=== PATIENT | female | born 1950 | race Caucasian/White ===

== ENCOUNTER → 2018-01-07 14:54 | Outpatient (CLI) | payer MEDICARE, OTHER, SELFPAY ==
--- NOTE | 2018-01-07 | DI.MG.S_ITS ---
BILATERAL DIGITAL SCREENING MAMMOGRAM 3D/2D WITH CAD: 01/07/2018 CLINICAL: Routine screening. Comparison is made to exams dated: 11/13/2016 mammogram, 11/05/2015 mammogram, and 05/28/2015 mammogram - [facility]. The tissue of both breasts is predominantly fatty. Current study was also evaluated with a Computer Aided Detection (CAD) system. There is a biopsy clip in the left breast. No significant masses, calcifications, or other findings are seen in either breast. There has been no significant interval change. IMPRESSION: NEGATIVE There is no mammographic evidence of malignancy. A 1 year screening mammogram is recommended. This exam was interpreted at Station ID: [id number]. NOTE: For mammograms, a report in lay terms will be sent to the patient. Approximately 15% of breast malignancies will not be visualized mammographically. In the management of a palpable breast mass, a negative mammogram must not discourage biopsy of a clinically suspicious lesion. Electronically Signed By: Chris perez/aakash:01/07/2018 16:27:23 letter sent: Normal Exam ACR BI-RADS Category 1: Negative 3341F
== END ==
PROVIDERS: Family Provider Family Medicine; PCP Family Medicine; Visit Provider Family Medicine
DX: Z12.31 Encounter for screening mammogram for malignant neoplasm of breast (principal)
CPT/HCPCS: 77063; 77067

== ENCOUNTER 2018-11-18 11:08 | Inpatient (IN) | payer MEDICARE, OTHER, SELFPAY ==
[2018-11-18] VITALS (18 sets, daily range): BP systolic 111–160; BP diastolic 46–80; PULSE 77–98; RESP 13–18; TEMP 35.9–36.6; O2SAT 93–99; BMI 37.1; BMI 37.3
--- NOTE | 2018-11-18 | PATH_ITS ---
[facility] Accession Number: [id number] . 01 Material submitted: . gastrointestinal site - GASTRIC MUCOSA BIOPSIES . 01 Clinical history: . EVALUATE FOR H. PYLORI . 02 Diagnosis: Stomach, Biopsies: Acute erosive gastritis. Negative for Helicobacter by immunohistochemistry. Negative for intestinal metaplasia by alcian blue stain. Negative for dysplasia and malignancy. [facility]/11/21/2018 . 02 Electronically signed: . Saray Phillips MD, Pathologist NPI- [id number] . 01 Gross description: . GASTRIC MUCOSA BIOPSIES: Received in formalin are multiple fragment(s) of hightower, soft tissue measuring 0.1 x 0.1 x 0.1 cm to 0.3 x 0.2 x 0.2 cm which is entirely submitted and submitted entirely in 1 cassette(s) /DMC /DMC . 02 Microscopic: . An alcian blue stain was performed to evaluate for intestinal metaplasia, and is negative. The control stain showed appropriate reactivity. . An immunohistochemical stain was performed to evaluate for Helicobacter organisms and is negative. The control stain showed appropriate reactivity. . * This test was developed and its performance characteristics determined by [facility]. It has not been cleared or approved by the U.S. Food and Drug Administration. The FDA has determined that such clearance or approval is not necessary. This test is used for clinical purposes. It should not be regarded as investigational or for research. . 02 Pathologist provided ICD-10: K25.9 . 02 CPT . 314023, 086264, G72007 Performed at: [address], [place], [place] [id number] MD Bi Langford MD Phone: [phone] Performed at: 02 [facility] [address] [place] [id number] MD Saray Phillips MD Phone: [phone]
--- NOTE | 2018-11-18 11:18 | PC.NURSE ---
pt c/o dark tary stool x2 today, reports dizziness, and sob when she stands. states feels fine laying on stretcher.
[2018-11-18 11:58] LABS: INR 1.1 (0.9-1.3); Prothrombin Time 12.6 SECONDS (10.1-12.7)
[2018-11-18 12:00] LABS: Add Manual Diff / Slide Review NO; Basophils Absolute Auto 200 /uL (0-100); Basophils Percent Auto 1.2 % (0-2); Eosinophils Absolute Auto 100 /uL (0-450); Eosinophils Percent Auto 0.4 % (2-4); Hematocrit 37.7 % (36-46); Hemoglobin 12.7 g/dL (12.0-16.0); Lymphocytes Absolute Auto 1600 /uL (1100-4500); Mean Corpuscular HGB Conc 33.7 % (30-36); Mean Corpuscular Volume 86.1 fL (80-100); Monocytes Absolute Auto 1000 /uL (0-900); Monocytes Percent Auto 7.2 % (3-14); Neutrophils Absolute Auto 11500 /uL (1500-7000); Neutrophils Percent Auto 80.2 % (50-75); Platelet Count 311 X10^3/uL (150-400); Red Blood Cell Count 4.38 X10^6/uL (4.0-5.2); Red Cell Distribution Width 14.4 % (11.6-14.8); White Blood Cell Count 14.3 X10^3/uL (4.5-11.0)
[2018-11-18 12:01] LABS: PTT Partial Thromboplastin Tim 29 SECONDS (26.4-36.2)
[2018-11-18 12:05] LABS: Alanine Aminotransferase 17 IU/L (9-52); Albumin Globulin Ratio 1.3 (1.0-2.8); Alkaline Phosphatase 39 U/L (38-126); Aspartate Aminotransferase 18 IU/L (14-36); BUN Creatinine Ratio 83.3 (6-22); Bilirubin Total 0.5 mg/dL (0.2-1.3); Blood Urea Nitrogen 50 mg/dL (7-17); Calcium 9.5 mg/dL (8.4-10.2); Carbon Dioxide 25 mmol/L (22-32); Chloride 109 mmol/L (98-107); Estimated Glomerular Filt Rate > 60.0 mL/min (>60); Glucose 165 mg/dL (80-110); HEMOLYSIS < 15 (0-50); Potassium 4.8 mmol/L (3.4-5.1); Sodium 140 mmol/L (137-145)
--- NOTE | 2018-11-18 12:43 | ED.GIBLEED ---
HPI - GI Bleed <Taryn Berrios PA-C - Last Filed: 11/18/18 20:48> General Chief complaint: GI Bleed Stated complaint: Weakness, Black stool Time Seen by Provider: 11/18/18 12:43 Source: patient Mode of arrival: EMS Limitations: no limitations History of Present Illness HPI Narrative: This 68-year-old female comes via EMS due to to black stools this morning. She states bowel movements were normally formed and usually has 2 per morning. She states that she had did not have any vomiting today. She denies any abdominal or flank pain. She states she has been eating and drinking normally, felt slightly queasy last night so took some Tums. She states that this is a sensation of weakness when she stands up and tries to walk around, and that has persisted today. She has not eaten today. She has not had any diarrhea. She has not had any urinary symptoms or hematuria. She denies any chest pain or dyspnea. She states that she has a remote history of ulcer but no history of bleeding. She takes baby aspirin daily for prevention as well as 1 or 2 aspirin twice daily for knee pain, no increased recently. She states that she had some sweats last night, no known fever. She states that today she feels fine other than feeling a little bit ?queasy? when she is up and about. Past medical history: 1. Obesity 2. Hypertension 3. Hypercalcemia secondary to parathyroid adenoma 4. Perforated diverticulitis 2002 5. Nonbleeding ulcer She denies asthma, diabetes, coronary disease, arrhythmia, myocardial infarction, or stroke Past surgical history: 1. Colonoscopy 2012 which was normal by operative report 2. Bilateral tubal ligation 3. Partial colectomy 2002 with left oophorectomy 4. Repair of incisional hernia 5. Excision of parathyroid adenoma in the distant past 6. Removal of food impaction/esophageal stricture Related Data Home Medications Medication Instructions Recorded Confirmed aspirin 81 mg PO DAILY #0 05/16/12 11/18/18 metoprolol tartrate 25 mg PO BID #0 05/16/12 11/18/18 multivitamin 1 tab PO DAILY #0 05/16/12 11/18/18 Allergies Allergy/AdvReac Type Severity Reaction Status Date / Time diazepam Allergy Unknown anxiousness Verified 11/18/18 11:13 Penicillins Allergy Unknown rash, Verified 11/18/18 11:13 swelling everywhere Review of Systems <ELVA Love Last Filed: 11/18/18 20:48> Review of Systems ROS Unobtainable: All systems reviewed & are unremarkable except as noted in HPI and below PFSH <ELVA Love Last Filed: 11/18/18 20:48> Medical History (Updated 11/18/18 @ 19:11 by Damien Jiménez MD) Esophageal stricture (Acute) Gastric ulcer (Acute) Obesity (Acute) Social History household members: family Smoking Status: Never smoker alcohol intake: current Social History household members: family Smoking Status: Never smoker alcohol intake: current Exam <ELVA Love Last Filed: 11/18/18 20:48> Narrative Exam Narrative: GENERAL APPEARANCE: Patient sitting comfortably, in no distress. Postural vital signs following 1 L of saline: Supine 125/66, pulse 85, sitting 145/67, pulse 84, standing 156/80, pulse 88. Unable to do standing prior to fluids HEENT: PERRL, EOMI, conjunctiva pink NECK: Supple LUNGS: Clear to auscultation bilaterally. HEART: Rate and rhythm regular, normal S1 and S2, no S3 or S4. ABDOMEN: Soft, nontender, nondistended, bowel sounds present x 4 quadrants, no masses palpable, no hepatosplenomegaly. No CVAT EXTREMITIES: No edema, no cyanosis DERMATOLOGIC: No jaundice or exanthem NEUROLOGIC: Alert and oriented with normal speech and coordination RECTAL: black stool in vault, FOB +, no palpable internal masses Initial Vital Signs Initial Vital Signs: Vital Signs Pulse Rate 94 H 11/18/18 11:13 Respiratory Rate 15 11/18/18 11:13 Blood Pressure 142/74 H 11/18/18 11:13 Pulse Oximetry 96 11/18/18 11:13 <Carmelina Allan DO - Last Filed: 11/19/18 10:13> Initial Vital Signs Initial Vital Signs: Vital Signs Pulse Rate 94 H 11/18/18 11:13 Respiratory Rate 15 11/18/18 11:13 Blood Pressure 142/74 H 11/18/18 11:13 Pulse Oximetry 96 11/18/18 11:13 Course <Taryn Berrios PA-C - Last Filed: 11/18/18 20:48> Additional Information: Patient was not able to remain standing for postural vital signs secondary to feeling weak and dizzy. Fluids were initiated after repeat H&H drawn. She has been given Protonix and Zofran. Stool is black heme-positive. She is comfortable at rest. She is not having any abdominal pain. I spoke with Dr. Mehta, patient's PCP, who agrees that admission is warranted. Requested surgical consult. Likely upper GI bleed secondary to long-term ASA use. I have spoken with Dr. Chu poison information specialist for surgery who agrees with plan, requested 2nd IV start and will see patient end of the day. Orders Ordered: ED Orders 11/19/18 05:48 CBC [Complete Blood Count AUTO DIFF] Routine Comprehensive Metabolic Panel Routine 11/20/18 05:00 Basic Metabolic Panel Routine CBC [Complete Blood Count AUTO DIFF] Routine Metoprolol Succinate (Toprol Xl) 25 mg PO BID [facility] Last Admin: 11/19/18 09:27 Dose: 25 mg Admin: 11/18/18 22:14 Dose: Not Given Pantoprazole Sodium (Protonix) 40 mg IV BID [facility] Last Admin: 11/19/18 09:27 Dose: 40 mg Admin: 11/18/18 21:32 Dose: 40 mg Discontinued Medications Epinephrine HCl (Adrenalin) 1 mg SUBCUT NOW ONE Stop: 11/18/18 19:57 Last Admin: 11/18/18 19:59 Dose: 0.3 mg Sodium Chloride (Normal Saline 0.9%) 1,000 mls @ 1,000 mls/hr IV BOLUS ONE Stop: 11/18/18 14:16 Last Infusion: 11/18/18 14:53 Dose: 0 mls/hr Admin: 11/18/18 13:41 Dose: 1,000 mls/hr Lactated Ringer's (Lactated Ringers) 1,000 mls @ 100 mls/hr IV NOW ONE Stop: 11/19/18 05:51 Last Infusion: 11/18/18 20:22 Dose: 0 mls/hr Admin: 11/18/18 19:52 Dose: 100 mls/hr Ondansetron HCl (Zofran) 4 mg IV NOW ONE Stop: 11/18/18 13:18 Last Admin: 11/18/18 13:41 Dose: 4 mg Pantoprazole Sodium (Protonix) 80 mg IV NOW ONE Stop: 11/18/18 13:05 Last Admin: 11/18/18 13:41 Dose: 80 mg Vital Signs - 8 hr 11/19/18 03:58 11/19/18 07:50 11/19/18 09:27 Temperature 98.0 F 97.7 F Pulse Rate 87 93 H 98 H Respiratory Rate 16 18 Blood Pressure 137/52 L 140/63 140/63 Pulse Oximetry 96 97 <Carmelina Allan, - Last Filed: 11/19/18 10:13> Orders Ordered: ED Orders 11/19/18 05:48 CBC [Complete Blood Count AUTO DIFF] Routine Comprehensive Metabolic Panel Routine 11/20/18 05:00 Basic Metabolic Panel Routine CBC [Complete Blood Count AUTO DIFF] Routine Metoprolol Succinate (Toprol Xl) 25 mg PO BID [facility] Last Admin: 11/19/18 09:27 Dose: 25 mg Admin: 11/18/18 22:14 Dose: Not Given Pantoprazole Sodium (Protonix) 40 mg IV BID [facility] Last Admin: 11/19/18 09:27 Dose: 40 mg Admin: 11/18/18 21:32 Dose: 40 mg Discontinued Medications Epinephrine HCl (Adrenalin) 1 mg SUBCUT NOW ONE Stop: 11/18/18 19:57 Last Admin: 11/18/18 19:59 Dose: 0.3 mg Sodium Chloride (Normal Saline 0.9%) 1,000 mls @ 1,000 mls/hr IV BOLUS ONE Stop: 11/18/18 14:16 Last Infusion: 11/18/18 14:53 Dose: 0 mls/hr Admin: 11/18/18 13:41 Dose: 1,000 mls/hr Lactated Ringer's (Lactated Ringers) 1,000 mls @ 100 mls/hr IV NOW ONE Stop: 11/19/18 05:51 Last Infusion: 11/18/18 20:22 Dose: 0 mls/hr Admin: 11/18/18 19:52 Dose: 100 mls/hr Ondansetron HCl (Zofran) 4 mg IV NOW ONE Stop: 11/18/18 13:18 Last Admin: 11/18/18 13:41 Dose: 4 mg Pantoprazole Sodium (Protonix) 80 mg IV NOW ONE Stop: 06/10/19 13:05 Last Admin: 11/18/18 13:41 Dose: 80 mg Vital Signs - 8 hr 11/19/18 03:58 11/19/18 07:50 11/19/18 09:27 Temperature 98.0 F 97.7 F Pulse Rate 87 93 H 98 H Respiratory Rate 16 18 Blood Pressure 137/52 L 140/63 140/63 Pulse Oximetry 96 97 MDM - GI Bleed <Taryn Berrios PA-C - Last Filed: 11/18/18 20:48> Lab Data Result diagrams: 11/19/18 05:48 11/19/18 05:48 Lab Results 11/18/18 11/18/18 11/18/18 Range/Units 11:37 11:37 11:37 WBC 14.3 H (4.5-11.0) X10^3/uL RBC 4.38 (4.0-5.2) X10^6/uL Hgb 12.7 (12.0-16.0) g/dL Hct 37.7 (36-46) % MCV 86.1 (80-100) fL MCH 29.0 (26-34) PG MCHC 33.7 (30-36) % RDW 14.4 (11.6-14.8) % Plt Count 311 (150-400) X10^3/uL Neut % (Auto) 80.2 H (50-75) % Lymph % (Auto) 11.0 L (25-40) % [place] % (Auto) 7.2 (3-14) % Eos % (Auto) 0.4 L (2-4) % Baso % (Auto) 1.2 (0-2) % Neut # (Auto) 59835 H (1096-7052) /uL Lymph # (Auto) 1600 (0784-7872) /uL [place] # (Auto) 1000 H (0-900) /uL Eos # (Auto) 100 (0-450) /uL Baso # (Auto) 200 H (0-100) /uL PT 12.6 (10.1-12.7) SECONDS INR 1.1 (0.9-1.3) APTT 29 (26.4-36.2) SECONDS Sodium 140 (137-145) mmol/L Potassium 4.8 (3.4-5.1) mmol/L Chloride 109 H (98-107) mmol/L Carbon Dioxide 25 (22-32) mmol/L BUN 50 H (7-17) mg/dL Creatinine 0.60 (0.52-1.04) mg/dL Estimated GFR > 60.0 (>60) mL/min BUN/Creatinine Ratio 83.3 H (6-22) Glucose 165 H (80-110) mg/dL Calcium 9.5 (8.4-10.2) mg/dL Total Bilirubin 0.5 (0.2-1.3) mg/dL AST 18 (14-36) IU/L ALT 17 (9-52) IU/L Alkaline Phosphatase 39 (38-126) U/L Total Protein 7.0 (6.3-8.2) g/dL Albumin 4.0 (3.5-5.0) g/dL Globulin 3.0 (1.7-4.1) g/dL Albumin/Globulin Ratio 1.3 (1.0-2.8) Amylase (30-110) U/L Lipase (23-300) U/L Urine RBC (0-5/HPF) Urine WBC (0-5/HPF) Ur Squamous Epith Cells (0-5/HPF) Ur Renal Epithelial Cell (0-1/HPF) Amorphous Sediment Urine Bacteria (None) Ur Culture Indicated? Blood Type Antibody Screen 11/18/18 11/18/18 11/18/18 Range/Units 13:35 13:35 15:00 WBC (4.5-11.0) X10^3/uL RBC (4.0-5.2) X10^6/uL Hgb 12.4 (12.0-16.0) g/dL Hct 37.0 (36-46) % MCV (80-100) fL MCH (26-34) PG MCHC (30-36) % RDW (11.6-14.8) % Plt Count (150-400) X10^3/uL Neut % (Auto) (50-75) % Lymph % (Auto) (25-40) % [place] % (Auto) (3-14) % Eos % (Auto) (2-4) % Baso % (Auto) (0-2) % Neut # (Auto) (9873-3830) /uL Lymph # (Auto) (7567-0310) /uL [place] # (Auto) (0-900) /uL Eos # (Auto) (0-450) /uL Baso # (Auto) (0-100) /uL PT (10.1-12.7) SECONDS INR (0.9-1.3) APTT (26.4-36.2) SECONDS Sodium (137-145) mmol/L Potassium (3.4-5.1) mmol/L Chloride (98-107) mmol/L Carbon Dioxide (22-32) mmol/L BUN (7-17) mg/dL Creatinine (0.52-1.04) mg/dL Estimated GFR (>60) mL/min BUN/Creatinine Ratio (6-22) Glucose (80-110) mg/dL Calcium (8.4-10.2) mg/dL Total Bilirubin (0.2-1.3) mg/dL AST (14-36) IU/L ALT (9-52) IU/L Alkaline Phosphatase (38-126) U/L Total Protein (6.3-8.2) g/dL Albumin (3.5-5.0) g/dL Globulin (1.7-4.1) g/dL Albumin/Globulin Ratio (1.0-2.8) Amylase 69 (30-110) U/L Lipase 66 (23-300) U/L Urine RBC None seen (0-5/HPF) Urine WBC 5-10/hpf H (0-5/HPF) Ur Squamous Epith Cells 1-5 /hpf (0-5/HPF) Ur Renal Epithelial Cell 0-1/hpf (0-1/HPF) Amorphous Sediment 1+ Urine Bacteria Few (2-10) H (None) Ur Culture Indicated? Specimen cultured Blood Type Antibody Screen 11/18/18 11/19/18 11/19/18 Range/Units 15:20 05:48 05:48 WBC 10.0 (4.5-11.0) X10^3/uL RBC 3.33 L (4.0-5.2) X10^6/uL Hgb 9.9 L (12.0-16.0) g/dL Hct 28.7 L (36-46) % MCV 86.3 (80-100) fL MCH 29.9 (26-34) PG MCHC 34.6 (30-36) % RDW 14.4 (11.6-14.8) % Plt Count 219 (150-400) X10^3/uL Neut % (Auto) 60.4 (50-75) % Lymph % (Auto) 26.0 (25-40) % [place] % (Auto) 9.8 (3-14) % Eos % (Auto) 2.8 (2-4) % Baso % (Auto) 1.0 (0-2) % Neut # (Auto) 6000 (7986-0233) /uL Lymph # (Auto) 2600 (2909-5019) /uL [place] # (Auto) 1000 H (0-900) /uL Eos # (Auto) 300 (0-450) /uL Baso # (Auto) 100 (0-100) /uL PT (10.1-12.7) SECONDS INR (0.9-1.3) APTT (26.4-36.2) SECONDS Sodium 139 (137-145) mmol/L Potassium 4.2 (3.4-5.1) mmol/L Chloride 111 H (98-107) mmol/L Carbon Dioxide 23 (22-32) mmol/L BUN 38 H (7-17) mg/dL Creatinine 0.60 (0.52-1.04) mg/dL Estimated GFR > 60.0 (>60) mL/min BUN/Creatinine Ratio 63.3 H (6-22) Glucose 137 H (80-110) mg/dL Calcium 8.6 (8.4-10.2) mg/dL Total Bilirubin 0.3 (0.2-1.3) mg/dL AST 19 (14-36) IU/L ALT 18 (9-52) IU/L Alkaline Phosphatase 33 L (38-126) U/L Total Protein 5.9 L (6.3-8.2) g/dL Albumin 3.1 L (3.5-5.0) g/dL Globulin 2.8 (1.7-4.1) g/dL Albumin/Globulin Ratio 1.1 (1.0-2.8) Amylase (30-110) U/L Lipase (23-300) U/L Urine RBC (0-5/HPF) Urine WBC (0-5/HPF) Ur Squamous Epith Cells (0-5/HPF) Ur Renal Epithelial Cell (0-1/HPF) Amorphous Sediment Urine Bacteria (None) Ur Culture Indicated? Blood Type O Positive Antibody Screen Negative Urine Dip Bedside Urine Glucose Negative Bedside Urine Bilirubin + 1 Bedside Urine Ketone - Negative Urine Specific [place] 1.020 Bedside Urine Occult Blood - Negative Bedside Urine pH 6.0 Bedside Urine Protein - Negative Bedside Urine Urobilinogen - Negative Bedside Urine Nitrite - Negative Bedside Urine Leukocytes ++ 125 Esterase <Carmelina Allan, DO - Last Filed: 11/19/18 10:13> Lab Data Lab Results 11/18/18 11/18/18 11/18/18 Range/Units 11:37 11:37 11:37 WBC 14.3 H (4.5-11.0) X10^3/uL RBC 4.38 (4.0-5.2) X10^6/uL Hgb 12.7 (12.0-16.0) g/dL Hct 37.7 (36-46) % MCV 86.1 (80-100) fL MCH 29.0 (26-34) PG MCHC 33.7 (30-36) % RDW 14.4 (11.6-14.8) % Plt Count 311 (150-400) X10^3/uL Neut % (Auto) 80.2 H (50-75) % Lymph % (Auto) 11.0 L (25-40) % [place] % (Auto) 7.2 (3-14) % Eos % (Auto) 0.4 L (2-4) % Baso % (Auto) 1.2 (0-2) % Neut # (Auto) 53245 H (3290-6903) /uL Lymph # (Auto) 1600 (4016-9288) /uL [place] # (Auto) 1000 H (0-900) /uL Eos # (Auto) 100 (0-450) /uL Baso # (Auto) 200 H (0-100) /uL PT 12.6 (10.1-12.7) SECONDS INR 1.1 (0.9-1.3) APTT 29 (26.4-36.2) SECONDS Sodium 140 (137-145) mmol/L Potassium 4.8 (3.4-5.1) mmol/L Chloride 109 H (98-107) mmol/L Carbon Dioxide 25 (22-32) mmol/L BUN 50 H (7-17) mg/dL Creatinine 0.60 (0.52-1.04) mg/dL Estimated GFR > 60.0 (>60) mL/min BUN/Creatinine Ratio 83.3 H (6-22) Glucose 165 H (80-110) mg/dL Calcium 9.5 (8.4-10.2) mg/dL Total Bilirubin 0.5 (0.2-1.3) mg/dL AST 18 (14-36) IU/L ALT 17 (9-52) IU/L Alkaline Phosphatase 39 (38-126) U/L Total Protein 7.0 (6.3-8.2) g/dL Albumin 4.0 (3.5-5.0) g/dL Globulin 3.0 (1.7-4.1) g/dL Albumin/Globulin Ratio 1.3 (1.0-2.8) Amylase (30-110) U/L Lipase (23-300) U/L Urine RBC (0-5/HPF) Urine WBC (0-5/HPF) Ur Squamous Epith Cells (0-5/HPF) Ur Renal Epithelial Cell (0-1/HPF) Amorphous Sediment Urine Bacteria (None) Ur Culture Indicated? Blood Type Antibody Screen 11/18/18 11/18/18 11/18/18 Range/Units 13:35 13:35 15:00 WBC (4.5-11.0) X10^3/uL RBC (4.0-5.2) X10^6/uL Hgb 12.4 (12.0-16.0) g/dL Hct 37.0 (36-46) % MCV (80-100) fL MCH (26-34) PG MCHC (30-36) % RDW (11.6-14.8) % Plt Count (150-400) X10^3/uL Neut % (Auto) (50-75) % Lymph % (Auto) (25-40) % [place] % (Auto) (3-14) % Eos % (Auto) (2-4) % Baso % (Auto) (0-2) % Neut # (Auto) (3913-9632) /uL Lymph # (Auto) (7873-3101) /uL [place] # (Auto) (0-900) /uL Eos # (Auto) (0-450) /uL Baso # (Auto) (0-100) /uL PT (10.1-12.7) SECONDS INR (0.9-1.3) APTT (26.4-36.2) SECONDS Sodium (137-145) mmol/L Potassium (3.4-5.1) mmol/L Chloride (98-107) mmol/L Carbon Dioxide (22-32) mmol/L BUN (7-17) mg/dL Creatinine (0.52-1.04) mg/dL Estimated GFR (>60) mL/min BUN/Creatinine Ratio (6-22) Glucose (80-110) mg/dL Calcium (8.4-10.2) mg/dL Total Bilirubin (0.2-1.3) mg/dL AST (14-36) IU/L ALT (9-52) IU/L Alkaline Phosphatase (38-126) U/L Total Protein (6.3-8.2) g/dL Albumin (3.5-5.0) g/dL Globulin (1.7-4.1) g/dL Albumin/Globulin Ratio (1.0-2.8) Amylase 69 (30-110) U/L Lipase 66 (23-300) U/L Urine RBC None seen (0-5/HPF) Urine WBC 5-10/hpf H (0-5/HPF) Ur Squamous Epith Cells 1-5 /hpf (0-5/HPF) Ur Renal Epithelial Cell 0-1/hpf (0-1/HPF) Amorphous Sediment 1+ Urine Bacteria Few (2-10) H (None) Ur Culture Indicated? Specimen cultured Blood Type Antibody Screen 11/18/18 11/19/18 11/19/18 Range/Units 15:20 05:48 05:48 WBC 10.0 (4.5-11.0) X10^3/uL RBC 3.33 L (4.0-5.2) X10^6/uL Hgb 9.9 L (12.0-16.0) g/dL Hct 28.7 L (36-46) % MCV 86.3 (80-100) fL MCH 29.9 (26-34) PG MCHC 34.6 (30-36) % RDW 14.4 (11.6-14.8) % Plt Count 219 (150-400) X10^3/uL Neut % (Auto) 60.4 (50-75) % Lymph % (Auto) 26.0 (25-40) % [place] % (Auto) 9.8 (3-14) % Eos % (Auto) 2.8 (2-4) % Baso % (Auto) 1.0 (0-2) % Neut # (Auto) 6000 (4079-8305) /uL Lymph # (Auto) 2600 (0880-7923) /uL [place] # (Auto) 1000 H (0-900) /uL Eos # (Auto) 300 (0-450) /uL Baso # (Auto) 100 (0-100) /uL PT (10.1-12.7) SECONDS INR (0.9-1.3) APTT (26.4-36.2) SECONDS Sodium 139 (137-145) mmol/L Potassium 4.2 (3.4-5.1) mmol/L Chloride 111 H (98-107) mmol/L Carbon Dioxide 23 (22-32) mmol/L BUN 38 H (7-17) mg/dL Creatinine 0.60 (0.52-1.04) mg/dL Estimated GFR > 60.0 (>60) mL/min BUN/Creatinine Ratio 63.3 H (6-22) Glucose 137 H (80-110) mg/dL Calcium 8.6 (8.4-10.2) mg/dL Total Bilirubin 0.3 (0.2-1.3) mg/dL AST 19 (14-36) IU/L ALT 18 (9-52) IU/L Alkaline Phosphatase 33 L (38-126) U/L Total Protein 5.9 L (6.3-8.2) g/dL Albumin 3.1 L (3.5-5.0) g/dL Globulin 2.8 (1.7-4.1) g/dL Albumin/Globulin Ratio 1.1 (1.0-2.8) Amylase (30-110) U/L Lipase (23-300) U/L Urine RBC (0-5/HPF) Urine WBC (0-5/HPF) Ur Squamous Epith Cells (0-5/HPF) Ur Renal Epithelial Cell (0-1/HPF) Amorphous Sediment Urine Bacteria (None) Ur Culture Indicated? Blood Type O Positive Antibody Screen Negative Urine Dip Bedside Urine Glucose Negative Bedside Urine Bilirubin + 1 Bedside Urine Ketone - Negative Urine Specific [place] 1.020 Bedside Urine Occult Blood - Negative Bedside Urine pH 6.0 Bedside Urine Protein - Negative Bedside Urine Urobilinogen - Negative Bedside Urine Nitrite - Negative Bedside Urine Leukocytes ++ 125 Esterase Discharge Plan Departure Patient Disposition: Admitted As Inpatient Clinical Impression: GI (gastrointestinal bleed) Discharge Date/Time: 11/18/18 15:32 Interventions: ED Discharge Assessment Last Done: 11/18/18 15:28 Admit Date/Time: 11/18/18 15:07 Admit Provider: Kendra Mehta <Carmelina Allan DO - Last Filed: 11/19/18 10:13> Cosign ED Attending Cosignature Attestation: I was immediately available in the department for consultation, case discussed and plan for admission with surgical consult. This documentation has been reviewed and I agree with assessment and plan. Supervised by Carmelina Allan DO
--- NOTE | 2018-11-18 12:46 | ED_ITS ---
HPI - GI Bleed <Taryn Berrios PA-C - Last Filed: 11/18/18 20:48> General Chief complaint: GI Bleed Stated complaint: Weakness, Black stool Time Seen by Provider: 11/18/18 12:43 Source: patient Mode of arrival: EMS Limitations: no limitations History of Present Illness HPI Narrative: This 68-year-old female comes via EMS due to to black stools this morning. She states bowel movements were normally formed and usually has 2 per morning. She states that she had did not have any vomiting today. She denies any abdominal or flank pain. She states she has been eating and drinking normal ly, felt slightly queasy last night so took some Tums. She states that this is a sensation of weakness when she stands up and tries to walk around, and that has persisted today. She has not eaten today. She has not had any diarrhea. She has not had any urinary symptoms or hematuria. She denies any chest pain or dyspnea. She states that she has a remote history of ulcer but no history of bleeding. She takes baby aspirin daily for prevention as well as 1 or 2 aspirin twice daily for knee pain, no increased recently. She states that she had some sweats last night, no known fever. She states that today she feels fine other than feeling a little bit ?queasy? when she is up and about. Past medical history: 1. Obesity 2. Hypertension 3. Hypercalcemia secondary to parathyroid adenoma 4. Perforated diverticulitis 2002 5. Nonbleeding ulcer She denies asthma, diabetes, coronary disease, arrhythmia, myocardial infarction, or stroke Past surgical history: 1. Colonoscopy 2012 which was normal by operative report 2. Bilateral tubal ligation 3. Partial colectomy 2002 with left oophorectomy 4. Repair of incisional hernia 5. Excision of parathyroid adenoma in the distant past 6. Removal of food impaction/esophageal stricture Related Data Home Medications Medication Instructions Recorded Confirmed aspirin 81 mg PO DAILY #0 05/16/12 11/18/18 metoprolol tartrate 25 mg PO BID #0 05/16/12 11/18/18 multivitamin 1 tab PO DAILY #0 05/16/12 11/18/18 Allergies Allergy/AdvReac Type Severity Reaction Status Date / Time diazepam Allergy Unknown anxiousness Verified 11/18/18 11:13 Penicillins Allergy Unknown rash, Verified 11/18/18 11:13 swelling everywhere Review of Systems <Taryn Berrios PA-C - Last Filed: 11/18/18 20:48> Review of Systems ROS Unobtainable: All systems reviewed & are unremarkable except as noted in HPI and below PFSH <Taryn Berrios PA-C - Last Filed: 11/18/18 20:48> Medical History (Updated 11/18/18 @ 19:11 by Damien Jiménez MD) Esophageal stricture (Acute) Gastric ulcer (Acute) Obesity (Acute) Social History household members: family Smoking Status: Never smoker alcohol intake: current Social History household members: family Smoking Status: Never smoker alcohol intake: current Exam <ELVA Love Last Filed: 11/18/18 20:48> Narrative Exam Narrative: GENERAL APPEARANCE: Patient sitting comfortably, in no distress. Postural vital signs following 1 L of saline: Supine 125/66, pulse 85, sitting 145/67, pulse 84, standing 156/80, pulse 88. Unable to do standing prior to fluids HEENT: PERRL, EOMI, conjunctiva pink NECK: Supple LUNGS: Clear to auscultation bilaterally. HEART: Rate and rhythm regular, normal S1 and S2, no S3 or S4. ABDOMEN: Soft, nontender, nondistended, bowel sounds present x 4 quadrants, no masses palpable, no hepatosplenomegaly. No CVAT EXTREMITIES: No edema, no cyanosis DERMATOLOGIC: No jaundice or exanthem NEUROLOGIC: Alert and oriented with normal speech and coordination RECTAL: black stool in vault, FOB +, no palpable internal masses Initial Vital Signs Initial Vital Signs: Vital Signs Pulse Rate 94 H 11/18/18 11:13 Respiratory Rate 15 11/18/18 11:13 Blood Pressure 142/74 H 11/18/18 11:13 Pulse Oximetry 96 11/18/18 11:13 <Carmelina Allan DO - Last Filed: 11/19/18 10:13> Initial Vital Signs Initial Vital Signs: Vital Signs Pulse Rate 94 H 11/18/18 11:13 Respiratory Rate 15 11/18/18 11:13 Blood Pressure 142/74 H 11/18/18 11:13 Pulse Oximetry 96 11/18/18 11:13 Course <Taryn Berrios PA-C - Last Filed: 11/18/18 20:48> Additional Information: Patient was not able to remain standing for postural vital signs secondary to feeling weak and dizzy. Fluids were initiated after repeat H&H drawn. She has been given Protonix and Zofran. Stool is black heme- positive. She is comfortable at rest. She is not having any abdominal pain. I spoke with Dr. Mehta, patient's PCP, who agrees that admission is warranted. Requested surgical consult. Likely upper GI bleed secondary to long-term ASA use. I have spoken with Dr. Chu qualifications examiner for surgery who agrees with plan, requested 2nd IV start and will see patient end of the day. Orders Ordered: ED Orders 11/19/18 05:48 CBC [Complete Blood Count AUTO DIFF] Routine Comprehensive Metabolic Panel Routine 11/20/18 05:00 Basic Metabolic Panel Routine CBC [Complete Blood Count AUTO DIFF] Routine Metoprolol Succinate (Toprol Xl) 25 mg PO BID [facility] Last Admin: 11/19/18 09:27 Dose: 25 mg Admin: 11/18/18 22:14 Dose: Not Given Pantoprazole Sodium (Protonix) 40 mg IV BID [facility] Last Admin: 11/19/18 09:27 Dose: 40 mg Admin: 11/18/18 21:32 Dose: 40 mg Discontinued Medications Epinephrine HCl (Adrenalin) 1 mg SUBCUT NOW ONE Stop: 11/18/18 19:57 Last Admin: 11/18/18 19:59 Dose: 0.3 mg Sodium Chloride (Normal Saline 0.9%) 1,000 mls @ 1,000 mls/hr IV BOLUS ONE Stop: 11/18/18 14:16 Last Infusion: 11/18/18 14:53 Dose: 0 mls/hr Admin: 11/18/18 13:41 Dose: 1,000 mls/hr Lactated Ringer's (Lactated Ringers) 1,000 mls @ 100 mls/hr IV NOW ONE Stop: 11/19/18 05:51 Last Infusion: 11/18/18 20:22 Dose: 0 mls/hr Admin: 11/18/18 19:52 Dose: 100 mls/hr Ondansetron HCl (Zofran) 4 mg IV NOW ONE Stop: 11/18/18 13:18 Last Admin: 11/18/18 13:41 Dose: 4 mg Pantoprazole Sodium (Protonix) 80 mg IV NOW ONE Stop: 11/18/18 13:05 Last Admin: 11/18/18 13:41 Dose: 80 mg Vital Signs - 8 hr 11/19/18 03:58 11/19/18 07:50 11/19/18 09:27 Temperature 98.0 F 97.7 F Pulse Rate 87 93 H 98 H Respiratory Rate 16 18 Blood Pressure 137/52 L 140/63 140/63 Pulse Oximetry 96 97 <Carmelina Allan, - Last Filed: 11/19/18 10:13> Orders Ordered: ED Orders 11/19/18 05:48 CBC [Complete Blood Count AUTO DIFF] Routine Comprehensive Metabolic Panel Routine 11/20/18 05:00 Basic Metabolic Panel Routine CBC [Complete Blood Count AUTO DIFF] Routine Metoprolol Succinate (Toprol Xl) 25 mg PO BID [facility] Last Admin: 11/19/18 09:27 Dose: 25 mg Admin: 11/18/18 22:14 Dose: Not Given Pantoprazole Sodium (Protonix) 40 mg IV BID [facility] Last Admin: 11/19/18 09:27 Dose: 40 mg Admin: 11/18/18 21:32 Dose: 40 mg Discontinued Medications Epinephrine HCl (Adrenalin) 1 mg SUBCUT NOW ONE Stop: 11/18/18 19:57 Last Admin: 11/18/18 19:59 Dose: 0.3 mg Sodium Chloride (Normal Saline 0.9%) 1,000 mls @ 1,000 mls/hr IV BOLUS ONE Stop: 11/18/18 14:16 Last Infusion: 11/18/18 14:53 Dose: 0 mls/hr Admin: 11/18/18 13:41 Dose: 1,000 mls/hr Lactated Ringer's (Lactated Ringers) 1,000 mls @ 100 mls/hr IV NOW ONE Stop: 11/19/18 05:51 Last Infusion: 11/18/18 20:22 Dose: 0 mls/hr Admin: 11/18/18 19:52 Dose: 100 mls/hr Ondansetron HCl (Zofran) 4 mg IV NOW ONE Stop: 11/18/18 13:18 Last Admin: 11/18/18 13:41 Dose: 4 mg Pantoprazole Sodium (Protonix) 80 mg IV NOW ONE Stop: 11/18/18 13:05 Last Admin: 11/18/18 13:41 Dose: 80 mg Vital Signs - 8 hr 11/19/18 03:58 11/19/18 07:50 11/19/18 09:27 Temperature 98.0 F 97.7 F Pulse Rate 87 93 H 98 H Respiratory Rate 16 18 Blood Pressure 137/52 L 140/63 140/63 Pulse Oximetry 96 97 MDM - GI Bleed <Taryn Berrios PA-C - Last Filed: 11/18/18 20:48> Lab Data Result diagrams: 11/19/18 05:48 11/19/18 05:48 Lab Results 11/18/18 11/18/18 11/18/18 Range/Units 11:37 11:37 11:37 WBC 14.3 H (4.5-11.0) X10^3/uL RBC 4.38 (4.0-5.2) X10^6/uL Hgb 12.7 (12.0-16.0) g/dL Hct 37.7 (36-46) % MCV 86.1 (80-100) fL MCH 29.0 (26-34) PG MCHC 33.7 (30-36) % RDW 14.4 (11.6-14.8) % Plt Count 311 (150-400) X10^3/uL Neut % (Auto) 80.2 H (50-75) % Lymph % (Auto) 11.0 L (25-40) % [place] % (Auto) 7.2 (3-14) % Eos % (Auto) 0.4 L (2-4) % Baso % (Auto) 1.2 (0-2) % Neut # (Auto) 14200 H (8304-6444) /uL Lymph # (Auto) 1600 (2927-3970) /uL [place] # (Auto) 1000 H (0-900) /uL Eos # (Auto) 100 (0-450) /uL Baso # (Auto) 200 H (0-100) /uL PT 12.6 (10.1-12.7) SECONDS INR 1.1 (0.9-1.3) APTT 29 (26.4-36.2) SECONDS Sodium 140 (137-145) mmol/L Potassium 4.8 (3.4-5.1) mmol/L Chloride 109 H (98-107) mmol/L Carbon Dioxide 25 (22-32) mmol/L BUN 50 H (7-17) mg/dL Creatinine 0.60 (0.52-1.04) mg/dL Estimated GFR > 60.0 (>60) mL/min BUN/Creatinine Ratio 83.3 H (6-22) Glucose 165 H (80-110) mg/dL Calcium 9.5 (8.4-10.2) mg/dL Total Bilirubin 0.5 (0.2-1.3) mg/dL AST 18 (14-36) IU/L ALT 17 (9-52) IU/L Alkaline Phosphatase 39 (38-126) U/L Total Protein 7.0 (6.3-8.2) g/dL Albumin 4.0 (3.5-5.0) g/dL Globulin 3.0 (1.7-4.1) g/dL Albumin/Globulin Ratio 1.3 (1.0-2.8) Amylase (30-110) U/L Lipase (23-300) U/L Urine RBC (0-5/HPF) Urine WBC (0-5/HPF) Ur Squamous Epith Cells (0-5/HPF) Ur Renal Epithelial Cell (0-1/HPF) Amorphous Sediment Urine Bacteria (None) Ur Culture Indicated? Blood Type Antibody Screen 11/18/18 11/18/18 11/18/18 Range/Units 13:35 13:35 15:00 WBC (4.5-11.0) X10^3/uL RBC (4.0-5.2) X10^6/uL Hgb 12.4 (12.0-16.0) g/dL Hct 37.0 (36-46) % MCV (80-100) fL MCH (26-34) PG MCHC (30-36) % RDW (11.6-14.8) % Plt Count (150-400) X10^3/uL Neut % (Auto) (50-75) % Lymph % (Auto) (25-40) % [place] % (Auto) (3-14) % Eos % (Auto) (2-4) % Baso % (Auto) (0-2) % Neut # (Auto) (5862-7964) /uL Lymph # (Auto) (2728-6942) /uL [place] # (Auto) (0-900) /uL Eos # (Auto) (0-450) /uL Baso # (Auto) (0-100) /uL PT (10.1-12.7) SECONDS INR (0.9-1.3) APTT (26.4-36.2) SECONDS Sodium (137-145) mmol/L Potassium (3.4-5.1) mmol/L Chloride (98-107) mmol/L Carbon Dioxide (22-32) mmol/L BUN (7-17) mg/dL Creatinine (0.52-1.04) mg/dL Estimated GFR (>60) mL/min BUN/Creatinine Ratio (6-22) Glucose (80-110) mg/dL Calcium (8.4-10.2) mg/dL Total Bilirubin (0.2-1.3) mg/dL AST (14-36) IU/L ALT (9-52) IU/L Alkaline Phosphatase (38-126) U/L Total Protein (6.3-8.2) g/dL Albumin (3.5-5.0) g/dL Globulin (1.7-4.1) g/dL Albumin/Globulin Ratio (1.0-2.8) Amylase 69 (30-110) U/L Lipase 66 (23-300) U/L Urine RBC None seen (0-5/HPF) Urine WBC 5-10/hpf H (0-5/HPF) Ur Squamous Epith Cells 1-5 /hpf (0-5/HPF) Ur Renal Epithelial Cell 0-1/hpf (0-1/HPF) Amorphous Sediment 1+ Urine Bacteria Few (2-10) H (None) Ur Culture Indicated? Specimen cultured Blood Type Antibody Screen 11/18/18 11/19/18 11/19/18 Range/Units 15:20 05:48 05:48 WBC 10.0 (4.5-11.0) X10^3/uL RBC 3.33 L (4.0-5.2) X10^6/uL Hgb 9.9 L (12.0-16.0) g/dL Hct 28.7 L (36-46) % MCV 86.3 (80-100) fL MCH 29.9 (26-34) PG MCHC 34.6 (30-36) % RDW 14.4 (11.6-14.8) % Plt Count 219 (150-400) X10^3/uL Neut % (Auto) 60.4 (50-75) % Lymph % (Auto) 26.0 (25-40) % [place] % (Auto) 9.8 (3-14) % Eos % (Auto) 2.8 (2-4) % Baso % (Auto) 1.0 (0-2) % Neut # (Auto) 6000 (5451-4527) /uL Lymph # (Auto) 2600 (1698-6222) /uL [place] # (Auto) 1000 H (0-900) /uL Eos # (Auto) 300 (0-450) /uL Baso # (Auto) 100 (0-100) /uL PT (10.1-12.7) SECONDS INR (0.9-1.3) APTT (26.4-36.2) SECONDS Sodium 139 (137-145) mmol/L Potassium 4.2 (3.4-5.1) mmol/L Chloride 111 H (98-107) mmol/L Carbon Dioxide 23 (22-32) mmol/L BUN 38 H (7-17) mg/dL Creatinine 0.60 (0.52-1.04) mg/dL Estimated GFR > 60.0 (>60) mL/min BUN/Creatinine Ratio 63.3 H (6-22) Glucose 137 H (80-110) mg/dL Calcium 8.6 (8.4-10.2) mg/dL Total Bilirubin 0.3 (0.2-1.3) mg/dL AST 19 (14-36) IU/L ALT 18 (9-52) IU/L Alkaline Phosphatase 33 L (38-126) U/L Total Protein 5.9 L (6.3-8.2) g/dL Albumin 3.1 L (3.5-5.0) g/dL Globulin 2.8 (1.7-4.1) g/dL Albumin/Globulin Ratio 1.1 (1.0-2.8) Amylase (30-110) U/L Lipase (23-300) U/L Urine RBC (0-5/HPF) Urine WBC (0-5/HPF) Ur Squamous Epith Cells (0-5/HPF) Ur Renal Epithelial Cell (0-1/HPF) Amorphous Sediment Urine Bacteria (None) Ur Culture Indicated? Blood Type O Positive Antibody Screen Negative Urine Dip Bedside Urine Glucose Negative Bedside Urine Bilirubin + 1 Bedside Urine Ketone - Negative Urine Specific [place] 1.020 Bedside Urine Occult Blood - Negative Bedside Urine pH 6.0 Bedside Urine Protein - Negative Bedside Urine Urobilinogen - Negative Bedside Urine Nitrite - Negative Bedside Urine Leukocytes ++ 125 Esterase <Carmelina Jayla Jerrell, DO - Last Filed: 11/19/18 10:13> Lab Data Lab Results 11/18/18 11/18/18 11/18/18 Range/Units 11:37 11:37 11:37 WBC 14.3 H (4.5-11.0) X10^3/uL RBC 4.38 (4.0-5.2) X10^6/uL Hgb 12.7 (12.0-16.0) g/dL Hct 37.7 (36-46) % MCV 86.1 (80-100) fL MCH 29.0 (26-34) PG MCHC 33.7 (30-36) % RDW 14.4 (11.6-14.8) % Plt Count 311 (150-400) X10^3/uL Neut % (Auto) 80.2 H (50-75) % Lymph % (Auto) 11.0 L (25-40) % [place] % (Auto) 7.2 (3-14) % Eos % (Auto) 0.4 L (2-4) % Baso % (Auto) 1.2 (0-2) % Neut # (Auto) 17954 H (2650-7242) /uL Lymph # (Auto) 1600 (1608-8033) /uL [place] # (Auto) 1000 H (0-900) /uL Eos # (Auto) 100 (0-450) /uL Baso # (Auto) 200 H (0-100) /uL PT 12.6 (10.1-12.7) SECONDS INR 1.1 (0.9-1.3) APTT 29 (26.4-36.2) SECONDS Sodium 140 (137-145) mmol/L Potassium 4.8 (3.4-5.1) mmol/L Chloride 109 H (98-107) mmol/L Carbon Dioxide 25 (22-32) mmol/L BUN 50 H (7-17) mg/dL Creatinine 0.60 (0.52-1.04) mg/dL Estimated GFR > 60.0 (>60) mL/min BUN/Creatinine Ratio 83.3 H (6-22) Glucose 165 H (80-110) mg/dL Calcium 9.5 (8.4-10.2) mg/dL Total Bilirubin 0.5 (0.2-1.3) mg/dL AST 18 (14-36) IU/L ALT 17 (9-52) IU/L Alkaline Phosphatase 39 (38-126) U/L Total Protein 7.0 (6.3-8.2) g/dL Albumin 4.0 (3.5-5.0) g/dL Globulin 3.0 (1.7-4.1) g/dL Albumin/Globulin Ratio 1.3 (1.0-2.8) Amylase (30-110) U/L Lipase (23-300) U/L Urine RBC (0-5/HPF) Urine WBC (0-5/HPF) Ur Squamous Epith Cells (0-5/HPF) Ur Renal Epithelial Cell (0-1/HPF) Amorphous Sediment Urine Bacteria (None) Ur Culture Indicated? Blood Type Antibody Screen 11/18/18 11/18/18 11/18/18 Range/Units 13:35 13:35 15:00 WBC (4.5-11.0) X10^3/uL RBC (4.0-5.2) X10^6/uL Hgb 12.4 (12.0-16.0) g/dL Hct 37.0 (36-46) % MCV (80-100) fL MCH (26-34) PG MCHC (30-36) % RDW (11.6-14.8) % Plt Count (150-400) X10^3/uL Neut % (Auto) (50-75) % Lymph % (Auto) (25-40) % [place] % (Auto) (3-14) % Eos % (Auto) (2-4) % Baso % (Auto) (0-2) % Neut # (Auto) (0879-1566) /uL Lymph # (Auto) (7993-8493) /uL [place] # (Auto) (0-900) /uL Eos # (Auto) (0-450) /uL Baso # (Auto) (0-100) /uL PT (10.1-12.7) SECONDS INR (0.9-1.3) APTT (26.4-36.2) SECONDS Sodium (137-145) mmol/L Potassium (3.4-5.1) mmol/L Chloride (98-107) mmol/L Carbon Dioxide (22-32) mmol/L BUN (7-17) mg/dL Creatinine (0.52-1.04) mg/dL Estimated GFR (>60) mL/min BUN/Creatinine Ratio (6-22) Glucose (80-110) mg/dL Calcium (8.4-10.2) mg/dL Total Bilirubin (0.2-1.3) mg/dL AST (14-36) IU/L ALT (9-52) IU/L Alkaline Phosphatase (38-126) U/L Total Protein (6.3-8.2) g/dL Albumin (3.5-5.0) g/dL Globulin (1.7-4.1) g/dL Albumin/Globulin Ratio (1.0-2.8) Amylase 69 (30-110) U/L Lipase 66 (23-300) U/L Urine RBC None seen (0-5/HPF) Urine WBC 5-10/hpf H (0-5/HPF) Ur Squamous Epith Cells 1-5 /hpf (0-5/HPF) Ur Renal Epithelial Cell 0-1/hpf (0-1/HPF) Amorphous Sediment 1+ Urine Bacteria Few (2-10) H (None) Ur Culture Indicated? Specimen cultured Blood Type Antibody Screen 11/18/18 11/19/18 11/19/18 Range/Units 15:20 05:48 05:48 WBC 10.0 (4.5-11.0) X10^3/uL RBC 3.33 L (4.0-5.2) X10^6/uL Hgb 9.9 L (12.0-16.0) g/dL Hct 28.7 L (36-46) % MCV 86.3 (80-100) fL MCH 29.9 (26-34) PG MCHC 34.6 (30-36) % RDW 14.4 (11.6-14.8) % Plt Count 219 (150-400) X10^3/uL Neut % (Auto) 60.4 (50-75) % Lymph % (Auto) 26.0 (25-40) % [place] % (Auto) 9.8 (3-14) % Eos % (Auto) 2.8 (2-4) % Baso % (Auto) 1.0 (0-2) % Neut # (Auto) 6000 (5884-5764) /uL Lymph # (Auto) 2600 (9610-5225) /uL [place] # (Auto) 1000 H (0-900) /uL Eos # (Auto) 300 (0-450) /uL Baso # (Auto) 100 (0-100) /uL PT (10.1-12.7) SECONDS INR (0.9-1.3) APTT (26.4-36.2) SECONDS Sodium 139 (137-145) mmol/L Potassium 4.2 (3.4-5.1) mmol/L Chloride 111 H (98-107) mmol/L Carbon Dioxide 23 (22-32) mmol/L BUN 38 H (7-17) mg/dL Creatinine 0.60 (0.52-1.04) mg/dL Estimated GFR > 60.0 (>60) mL/min BUN/Creatinine Ratio 63.3 H (6-22) Glucose 137 H (80-110) mg/dL Calcium 8.6 (8.4-10.2) mg/dL Total Bilirubin 0.3 (0.2-1.3) mg/dL AST 19 (14-36) IU/L ALT 18 (9-52) IU/L Alkaline Phosphatase 33 L (38-126) U/L Total Protein 5.9 L (6.3-8.2) g/dL Albumin 3.1 L (3.5-5.0) g/dL Globulin 2.8 (1.7-4.1) g/dL Albumin/Globulin Ratio 1.1 (1.0-2.8) Amylase (30-110) U/L Lipase (23-300) U/L Urine RBC (0-5/HPF) Urine WBC (0-5/HPF) Ur Squamous Epith Cells (0-5/HPF) Ur Renal Epithelial Cell (0-1/HPF) Amorphous Sediment Urine Bacteria (None) Ur Culture Indicated? Blood Type O Positive Antibody Screen Negative Urine Dip Bedside Urine Glucose Negative Bedside Urine Bilirubin + 1 Bedside Urine Ketone - Negative Urine Specific [place] 1.020 Bedside Urine Occult Blood - Negative Bedside Urine pH 6.0 Bedside Urine Protein - Negative Bedside Urine Urobilinogen - Negative Bedside Urine Nitrite - Negative Bedside Urine Leukocytes ++ 125 Esterase Discharge Plan Departure Patient Disposition: Admitted As Inpatient Clinical Impression: GI (gastrointestinal bleed) Discharge Date/Time: 11/18/18 15:32 Interventions: ED Discharge Assessment Last Done: 11/18/18 15:28 Admit Date/Time: 11/18/18 15:07 Admit Provider: Kendra Mehta <Carmelina Allan DO - Last Filed: 11/19/18 10:13> Cosign ED Attending Cosignature Attestation: I was immediately available in the department for consultation, case discussed and plan for admission with surgical consult. This documentation has been r eviewed and I agree with assessment and plan. Supervised by Carmelina Allan DO
[2018-11-18] MEDS: ONDANSETRON 4 MG/2 ML INJ IV (13:41)
[2018-11-18] MEDS: PANTOPRAZOLE 40 MG VIAL 80 MG IV (13:41)
[2018-11-18] MEDS: SODIUM CHLORIDE 0.9% 1,000 ML 1000 ML IV (13:41)
[2018-11-18 13:43] LABS: Hemoglobin 12.4 g/dL (12.0-16.0)
[2018-11-18 14:28] LABS: Amylase 69 U/L (30-110); Lipase 66 U/L (23-300)
[2018-11-18 15:45] LABS: Amorphous Sediment Urine 1+; Bacteria Urine Few (2-10); RBC Urine None Seen (0-5/HPF); Renal Epithelial Cells Urine 0-1/HPF (0-1/HPF); Squamous Epithelial Cell Urine 1-5 /HPF (0-5/HPF); WBC Urine 5-10/HPF (0-5/HPF)
[2018-11-18 15:46] LABS: Culture Indicated Urine Specimen Cultured
--- NOTE | 2018-11-18 19:05 | P.HP_ITS ---
History of Present Illness Date Patient Seen: 11/18/18 Time Patient Seen: 18:54 Chief complaint: Weakness, Black stool Narrative: This is a pleasant 68-year-old female who has a history of hy pertension and borderline hyperglycemia who presents to the emergency department via EMS with complaints of feeling nauseous dizzy, weak and 2 episodes of black tarry stools. In the emergency department she was found to be presyncopal and they were unable to even really sit her up without significant dizziness. Her vital signs were stable and she was not anemic. She was grossly positive guaiac in stools appeared melanotic and she was admitted for further monitoring and treatment. She is a well known patient to me although I do not see her frequently and she was last seen approximately 1 year ago. She states that she has been in good health. She only takes metoprolol 25 mg twice daily and states that her blood pressures been well controlled. She and her were doing a lot of work yesterday involving moving boxes down a ladder. She then just felt that she had overdone it and did not eat and then when she awakened this morning she felt nauseous she had diaphoresis and then black tarry stools and was so dizzy and weak that her was unable to even get her in the car. She never had any abdominal pain. She never had any bright red blood per rectum. Patient drinks 2-3 drinks of alcohol daily and has been taking aspirin intermittently 325 mg to but not on a daily basis. She takes this for her knee pain. She occasionally has some reflux but nothing chronic. She has not had any change in her bowels other than above. She was given IV fluids in the ER and is feeling somewhat better. Past medical history: 1. Hypertension well control 2. Hyperglycemia 3. Obesity 4. Normal spontaneous vaginal deliveries x2 Medications: Aspirin 81 mg daily, metoprolol tartrate 25 mg p.o. b.i.d., multivitamin daily Allergies: Penicillin causes rash and swelling; diazepam causes anxiety Past surgical history 1. Intestinal obstruction requiring surgical treatment 2. Large abdominal wall hernia Health rated behavior: No regular exercise. But fairly active. Non smoker and never a smoker 2-3 alcohol drinks nightly Family history: Mom is alive and well and healthy Dad has type 2 diabetes Social history: Patient is and lives with her in [place]. He has Parkinson's disease. She has 2 grown sons. Patient History Family & Social History Social History: household members family Safety & Behavioral: Feels Safe in Current Yes Environment Been Physically Hurt or No Threatened By a Person Suicidal Ideation Description None Tobacco & Substance use: Smoking Status Never smoker alcohol intake current alcohol intake frequency 0-2 drinks per day Meds Home Medications Medication Instructions Recorded Confirmed Type aspirin 81 mg PO DAILY #0 05/16/12 11/18/18 History metoprolol tartrate 25 mg PO BID #0 05/16/12 11/18/18 History multivitamin 1 tab PO DAILY #0 05/16/12 11/18/18 History Allergies Allergy/AdvReac Type Severity Reaction Status Date / Time diazepam Allergy Unknown anxiousness Verified 11/18/18 11:13 Penicillins Allergy Unknown rash, Verified 11/18/18 11:13 swelling everywhere Review of Systems Review of Systems Negative for any shortness of breath, chest pain, abdominal pain, urine symptoms, headaches All systems reviewed & are unremarkable except as noted in HPI and below Exam Vital Signs (past 8 hours): - 11/18/18 11:13 11/18/18 12:48 11/18/18 12:57 Temperature Pulse Rate 94 H 86 Pulse Rate [Orthostatic Lying] 83 Pulse Rate [Orthostatic Sitting] 94 H Pulse Rate [Orthostatic Standing] Respiratory Rate 15 18 Blood Pressure 142/74 H Blood Pressure [Orthostatic Lying] 125/64 Blood Pressure [Orthostatic Sitting] 111/69 Blood Pressure [Orthostatic Standing] Blood Pressure [Right Arm] 131/69 Pulse Oximetry 96 94 11/18/18 13:02 11/18/18 14:30 11/18/18 14:52 Temperature Pulse Rate 87 79 Pulse Rate [Orthostatic Lying] 85 Pulse Rate [Orthostatic Sitting] 84 Pulse Rate [Orthostatic Standing] 88 Respiratory Rate 16 16 Blood Pressure Blood Pressure [Orthostatic Lying] 125/66 Blood Pressure [Orthostatic Sitting] 145/67 H Blood Pressure [Orthostatic Standing] 156/80 H Blood Pressure [Right Arm] 111/69 139/69 Pulse Oximetry 98 99 11/18/18 15:01 11/18/18 15:28 11/18/18 15:52 Temperature 96.7 F L Pulse Rate 87 84 98 H Pulse Rate [Orthostatic Lying] Pulse Rate [Orthostatic Sitting] Pulse Rate [Orthostatic Standing] Respiratory Rate 14 18 18 Blood Pressure 135/59 L 146/46 H Blood Pressure [Orthostatic Lying] Blood Pressure [Orthostatic Sitting] Blood Pressure [Orthostatic Standing] Blood Pressure [Right Arm] 135/59 L Pulse Oximetry 98 98 98 Oxygen Delivery Method Room Air Narrative Exam Narrative: Afebrile, vital signs are stable. Patient is alert and oriented x3 with family at bedside HEENT: Unremarkable Neck: Supple without adenopathy or thyromegaly, no jugular venous distention but no bruits Chest: Clear to auscultation without wheezes rhonchi or crackles Cor: Regular rate and rhythm without murmur rubs or gallops, distant S1 and S2 Extremities: No edema, pulses intact Abdomen: Obese, positive bowel sounds, soft, nontender, nondistended, no guarding Objective Labs Result Diagrams: 11/18/18 13:35 11/18/18 11:37 Labs: Laboratory Results - last 24 hr 11/18/18 11/18/18 11/18/18 11:37 11:37 11:37 WBC 14.3 H RBC 4.38 Hgb 12.7 Hct 37.7 MCV 86.1 MCH 29.0 MCHC 33.7 RDW 14.4 Plt Count 311 Neut % (Auto) 80.2 H Lymph % (Auto) 11.0 L [place] % (Auto) 7.2 Eos % (Auto) 0.4 L Baso % (Auto) 1.2 Neut # (Auto) 07008 H Lymph # (Auto) 1600 [place] # (Auto) 1000 H Eos # (Auto) 100 Baso # (Auto) 200 H PT 12.6 INR 1.1 APTT 29 Sodium 140 Potassium 4.8 Chloride 109 H Carbon Dioxide 25 BUN 50 H Creatinine 0.60 Estimated GFR > 60.0 BUN/Creatinine Ratio 83.3 H Glucose 165 H Calcium 9.5 Total Bilirubin 0.5 AST 18 ALT 17 Alkaline Phosphatase 39 Total Protein 7.0 Albumin 4.0 Globulin 3.0 Albumin/Globulin Ratio 1.3 Amylase Lipase Urine RBC Urine WBC Ur Squamous Epith Cells Ur Renal Epithelial Cell Amorphous Sediment Urine Bacteria Ur Culture Indicated? Blood Type Antibody Screen 11/18/18 11/18/18 11/18/18 13:35 13:35 15:00 WBC RBC Hgb 12.4 Hct 37.0 MCV MCH MCHC RDW Plt Count Neut % (Auto) Lymph % (Auto) [place] % (Auto) Eos % (Auto) Baso % (Auto) Neut # (Auto) Lymph # (Auto) [place] # (Auto) Eos # (Auto) Baso # (Auto) PT INR APTT Sodium Potassium Chloride Carbon Dioxide BUN Creatinine Estimated GFR BUN/Creatinine Ratio Glucose Calcium Total Bilirubin AST ALT Alkaline Phosphatase Total Protein Albumin Globulin Albumin/Globulin Ratio Amylase 69 Lipase 66 Urine RBC None seen Urine WBC 5-10/hpf H Ur Squamous Epith Cells 1-5 /hpf Ur Renal Epithelial Cell 0-1/hpf Amorphous Sediment 1+ Urine Bacteria Few (2-10) H Ur Culture Indicated? Specimen cultured Blood Type Antibody Screen 11/18/18 15:20 WBC RBC Hgb Hct MCV MCH MCHC RDW Plt Count Neut % (Auto) Lymph % (Auto) [place] % (Auto) Eos % (Auto) Baso % (Auto) Neut # (Auto) Lymph # (Auto) [place] # (Auto) Eos # (Auto) Baso # (Auto) PT INR APTT Sodium Potassium Chloride Carbon Dioxide BUN Creatinine Estimated GFR BUN/Creatinine Ratio Glucose Calcium Total Bilirubin AST ALT Alkaline Phosphatase Total Protein Albumin Globulin Albumin/Globulin Ratio Amylase Lipase Urine RBC Urine WBC Ur Squamous Epith Cells Ur Renal Epithelial Cell Amorphous Sediment Urine Bacteria Ur Culture Indicated? Blood Type O Positive Antibody Screen Negative Assessment & Plan Assessment & Plan narrative: 68-year-old female with what appears to be upper GI bleed Patient will be admitted to the hospital for further monitoring and treatment Surgery has been consulted and will be taking patient to the OR for EGD tonight. Patient is hemodynamically stable but we will continue to monitor and pending the results of the EGD will recheck CBC in a.m.. Patient has been fluid resuscitated and typed and crossed. Will continue Protonix. Patient received 80 mg IV in the ER and we will continue at 40 mg IV b.i.d. Will hold aspirin Assessment 2. Hypertension Plan: Will continue metoprolol 25 mg twice daily as long as blood pressure remained stable. Assessment 3. DVT prophylaxis Plan: Lovenox contraindicated. Will place SCDs. Quality VTE Deep Vein Thrombosis/Pulmonary Embolism Present on Admission: No
--- NOTE | 2018-11-18 19:05 | PM.CN ---
History of Present Illness Date Patient Seen: 11/18/18 Time Patient Seen: 18:00 Chief complaint: Weakness, Black stool Reason for consult: Upper GI bleed Narrative: 68-year-old female with by history gastric ulcer some 30 years ago diagnosed clinically, who takes up to 3 regular strength aspirin daily for arthritis pain, in the setting of drinking 2-3 glasses of wine nightly presents with melanotic stool. Patient was in her usual state of health until yesterday evening she began to fill presyncopal, sweaty, nauseated. This morning she developed melanotic stool x2 with the last passage at 10:00 a.m. it smelled foul. Otherwise she was without symptoms and presented to the emergency department for evaluation There she was found to have a hematocrit of 37.7, she was borderline tachycardic on beta-blockers with a heart rate of 98. Orthostatics were positive [facility] Medical History (Updated 11/18/18 @ 19:11 by Damien Jiménez MD) Esophageal stricture (Acute) Gastric ulcer (Acute) Obesity (Acute) Social History household members: family Smoking Status: Never smoker alcohol intake: current Social History household members: family Smoking Status: Never smoker alcohol intake: current Meds Home Medications Medication Instructions Recorded Confirmed Type aspirin 81 mg PO DAILY #0 05/16/12 11/18/18 History metoprolol tartrate 25 mg PO BID #0 05/16/12 11/18/18 History multivitamin 1 tab PO DAILY #0 05/16/12 11/18/18 History Allergies Allergy/AdvReac Type Severity Reaction Status Date / Time diazepam Allergy Unknown anxiousness Verified 11/18/18 11:13 Penicillins Allergy Unknown rash, Verified 11/18/18 11:13 swelling everywhere Review of Systems Constitutional Constitutional: Denies fever(s) Eyes Eyes: Denies bulging eyes ENT Ears, Nose, Mouth, and Throat: No lip swelling Cardiovascular Cardiovascular: Denies generalize swelling Respiratory Respiratory: Denies stridor Gastrointestinal Gastrointestinal: Denies coffee ground emesis Musculoskeletal Musculoskeletal: Denies loss of height Integumentary/Breasts Skin/Breast: Denies wounds Neurologic Neurologic: Denies abnormal speech and Denies confusion Psychiatric Psychiatric: Denies confusion Endocrine Endocrine: Denies deepening of the voice Hematologic/Lymphatic Hematologic/Lymphatic: Denies lymphadenopathy Allergic/Immunologic Allergic/Immunologic: Denies lip swelling Exam Const General: cooperative and healthy appearing Orientation: alert [facility] Head: normal to inspection Nose: nares normal Mouth: oral mucosae normal and lip normal Eyes Eyelids: eyelids normal Conjunctivae: conjunctivae normal Sclera: sclerae normal Neck Neck: supple and other (No thyromegally) Chest Chest: other (LCTAB , regular respiratory effort) Cardio Rhythm: regular rhythm Heart Sounds: S1 normal, S2 normal, no gallops, no murmurs and no rubs GI Other: Soft, notably tender in the epigastrium nontender elsewhere no guarding Skin General: no rashes or lesions noted Neuro General: alert and awake Psych Appearance: grossly normal Affect: normal affect Objective Labs Result Diagrams: 11/18/18 13:35 11/18/18 11:37 Assessment & Plan Assessment & Plan narrative: 68-year-old female presents with melanotic stool suggestive of a upper GI bleed in the setting of chronic NSAID use fairly significant alcohol. Her epigastric tenderness suggestive of a possible bleeding gastric duodenal ulcer Plan: EGD for diagnosis and therapeutic value Continue high-dose PPI Two IVs at all times Type and screen completed Serial H&H NPO until stability proved No anticoagulation for DVT prophylaxis
--- NOTE | 2018-11-18 19:19 | P.CONS_ITS ---
History of Present Illness Date Patient Seen: 11/18/18 Time Patient Seen: 18:00 Chief complaint: Weakness, Black stool Reason for consult: Upper GI bleed Narrative: 68-year-old female with by history gastric ulcer some 30 years ago diagnosed clinically, who takes up to 3 regular strength aspirin daily for arthritis pain, in the setting of drinking 2-3 glasses of wine nightly presents with melanotic stool. Patient was in her usual state of health until yesterday evening she began to fill presyncopal, sweaty, nauseated. This morning she developed melanotic stool x2 with the last passage at 10:00 a.m. it smelled foul. Otherwise she was without symptoms and presented to the emergency department for evaluation There she was found to have a hematocrit of 37.7, she was borderline tachycardic on beta-blockers with a heart rate of 98. Orthostatics were positive [facility] Medical History (Updated 11/18/18 @ 19:11 by Damien Jiménez MD) Esophageal stricture (Acute) Gastric ulcer (Acute) Obesity (Acute) Social History household members: family Smoking Status: Never smoker alcohol intake: current Social History household members: family Smoking Status: Never smoker alcohol intake: current Meds Home Medications Medication Instructions Recorded Confirmed Type aspirin 81 mg PO DAILY #0 05/16/12 11/18/18 History metoprolol tartrate 25 mg PO BID #0 05/16/12 11/18/18 History multivitamin 1 tab PO DAILY #0 05/16/12 11/18/18 History Allergies Allergy/AdvReac Type Severity Reaction Status Date / Time diazepam Allergy Unknown anxiousness Verified 11/18/18 11:13 Penicillins Allergy Unknown rash, Verified 11/18/18 11:13 swelling everywhere Review of Systems Constitutional Constitutional: Denies fever(s) Eyes Eyes: Denies bulging eyes ENT Ears, Nose, Mouth, and Throat: No lip swelling Cardiovascular Cardiovascular: Denies generalize swelling Respiratory Respiratory: Denies stridor Gastrointestinal Gastrointestinal: Denies coffee ground emesis Musculoskeletal Musculoskeletal: Denies loss of height Integumentary/Breasts Skin/Breast: Denies wounds Neurologic Neurologic: Denies abnormal speech and Denies confusion Psychiatric Psychiatric: Denies confusion Endocrine Endocrine: Denies deepening of the voice Hematologic/Lymphatic Hematologic/Lymphatic: Denies lymphadenopathy Allergic/Immunologic Allergic/Immunologic: Denies lip swelling Exam Const General: cooperative and healthy appearing Orientation: alert [facility] Head: normal to inspection Nose: nares normal Mouth: oral mucosae normal and lip normal Eyes Eyelids: eyelids normal Conjunctivae: conjunctivae normal Sclera: sclerae normal Neck Neck: supple and other (No thyromegally) Chest Chest: other (LCTAB , regular respiratory effort) Cardio Rhythm: regular rhythm Heart Sounds: S1 normal, S2 normal, no gallops, no murmurs and no rubs GI Other: Soft, notably tender in the epigastrium nontender elsewhere no guarding Skin General: no rashes or lesions noted Neuro General: alert and awake Psych Appearance: grossly normal Affect: normal affect Objective Labs Result Diagrams: 11/18/18 13:35 11/18/18 11:37 Assessment & Plan Assessment & Plan narrative: 68-year-old female presents with melanotic stool suggestive of a upper GI bleed in the setting of chronic NSAID use fairly significant alcohol. Her epigastric tenderness suggestive of a possible bleeding gastric duodenal ulcer Plan: EGD for diagnosis and therapeutic value Continue high-dose PPI Two IVs at all times Type and screen completed Serial H&H NPO until stability proved No anticoagulation for DVT prophylaxis
[2018-11-18] MEDS: LACTATED RINGERS 1,000 ML 100 ML IV (19:52)
[2018-11-18] MEDS: EPINEPHrine 1 MG/ML AMPUL SUBCUT (19:59)
--- NOTE | 2018-11-18 21:05 | PM.OP.1 ---
Operative Date/Time/Diagnoses Date of procedure: 11/18/18 Time of procedure: 19:30 Pre-op diagnosis: Upper GI bleed Post-op diagnosis: other (1) bleeding superior/posterior duodenual ulcer, 2) multiple small gastric ulcers) Procedure & Clinicians Procedure: 1) EGD 2) injection of bleeding duodenal ulcer 3) gastric biopsy - cold x 6 Same procedure as scheduled: Yes Indications: 68-year-old female presented with melenotic stool and presyncope Surgeon: Roberto Chu Click Yes if Unassisted: Yes Anesthesia Type: Sedation Operative Notes Findings: 1) bleeding posterior and superior duodenal ulcer in first portion of duodenum 2) multiple small gastric ulcers Closure Type: not applicable Specimen(s): other (gastric biopsy - eval for H pylori ) Estimated Blood Loss (mL): 5 Blood products transfused: none Procedure in detail: Patient taken to the endoscopy suite. A time-out was completed. Anesthesia was present -was necessary given significant tolerance to benzodiazepines -required a propofol drip midazolam and fentanyl to adequately sedate. Once adequate sedation was obtained a gastric scope was introduced through the mouth into the proximal esophagus. The scope passed easily down through the esophagus there was a slight narrowing of the mid esophagus likely consistent with the known prior esophageal stricture. The findings at this point were fairly subtle. Upon entry into the stomach there was no blood. The scope was passed into the 1st and 2nd portion of the duodenum. On the posterior and superior wall of the duodenum approximately 1 cm from the pylorus there was a crater ulcer. There is a small amount of bleeding at its base -it was not brisk. The adjacent area was injected with 0.1 mg/mL of epinephrine -with blanching of the adjacent mucosa -bleeding stopped. The scope was slowly withdrawn - perhaps 6 or more small punctate ulcerations in the antrum. Multiple biopsies were obtained to evaluate for H pylori and any underlying mucosal abnormality. None appeared malignant. The scope was retroflexed there was a grade 1 Hill valve without hiatal hernia, the Z-line was distinct without evidence of Ferreira's esophagus Upon withdrawing the scope back through the esophagus no additional lesions were identified Patient tolerated the procedure well Complications: none Condition: stable Disposition: Acute Care Plan for aftercare: High dose PPI
[2018-11-18] MEDS: PANTOPRAZOLE 40 MG VIAL IV (21:32)
[2018-11-19] VITALS (9 sets, daily range): BP systolic 102–168; BP diastolic 52–75; PULSE 65–98; RESP 16–20; TEMP 36.4–37; O2SAT 85–99
--- NOTE | 2018-11-19 00:54 | PC.NURSE ---
2300- Pt admit for abdom pain/black stools; EGD completed see MD notes for details. Pt denies pain or discomfort at this time, states she is exhausted and just wants sleep. Moving SBA to bathroom; LR running as ordered; VSS on RA. Bilat SED's in place, BA on for pt's safety. [phone]- paged regarding pt's telemetry order. Phone order to DC telemetry. 0500- IV fluids discontinued.
[2018-11-19 05:58] LABS: Add Manual Diff / Slide Review NO; Basophils Absolute Auto 100 /uL (0-100); Eosinophils Absolute Auto 300 /uL (0-450); Eosinophils Percent Auto 2.8 % (2-4); Hematocrit 28.7 % (36-46); Hemoglobin 9.9 g/dL (12.0-16.0); Lymphocytes Absolute Auto 2600 /uL (1100-4500); Mean Corpuscular HGB Conc 34.6 % (30-36); Mean Corpuscular Hemoglobin 29.9 PG (26-34); Mean Corpuscular Volume 86.3 fL (80-100); Monocytes Absolute Auto 1000 /uL (0-900); Monocytes Percent Auto 9.8 % (3-14); Neutrophils Absolute Auto 6000 /uL (1500-7000); Neutrophils Percent Auto 60.4 % (50-75); Platelet Count 219 X10^3/uL (150-400); Red Blood Cell Count 3.33 X10^6/uL (4.0-5.2); Red Cell Distribution Width 14.4 % (11.6-14.8)
[2018-11-19 06:09] LABS: Alanine Aminotransferase 18 IU/L (9-52); Albumin 3.1 g/dL (3.5-5.0); Albumin Globulin Ratio 1.1 (1.0-2.8); Alkaline Phosphatase 33 U/L (38-126); Aspartate Aminotransferase 19 IU/L (14-36); BUN Creatinine Ratio 63.3 (6-22); Bilirubin Total 0.3 mg/dL (0.2-1.3); Blood Urea Nitrogen 38 mg/dL (7-17); Calcium 8.6 mg/dL (8.4-10.2); Carbon Dioxide 23 mmol/L (22-32); Chloride 111 mmol/L (98-107); Estimated Glomerular Filt Rate > 60.0 mL/min (>60); Globulin 2.8 g/dL (1.7-4.1); Glucose 137 mg/dL (80-110); HEMOLYSIS 24 (0-50); Potassium 4.2 mmol/L (3.4-5.1); Sodium 139 mmol/L (137-145); Total Protein 5.9 g/dL (6.3-8.2)
--- NOTE | 2018-11-19 08:12 | PM.PN.1 ---
Subjective Date Patient Seen: 11/19/18 Time Patient Seen: 08:13 Interval history: Patient is lying in hospital bed alert and oriented x3 in no apparent distress. She went to endoscopy last night underwent EGD and apparently 2 separate gastric ulcers were found and at least 1 were injected with epinephrine. Patient is still NPO. She is starting to get hungry. She is feeling much better today. She states that she is able to get up to go the bathroom twice and not feel dizzy. She has had no further stool output. She denies any abdominal pain. She denies any reflux. Twelve point review of system is negative Exam Vital Signs (past 8 hours): - 11/19/18 03:58 11/19/18 07:50 Temperature 98.0 F 97.7 F Pulse Rate 87 93 H Respiratory Rate 16 18 Blood Pressure 137/52 L 140/63 Pulse Oximetry 96 97 Oxygen Delivery Method Room Air Oxygen Flow Rate 0 Narrative Exam Narrative: Alert and oriented x3. Looks much better today in terms of color and overall appearance HEENT is unremarkable Neck is supple Chest: Clear to auscultation without wheezes rhonchi or crackles Cor: Regular rate and rhythm with distant heart sounds Abdomen: Obese, positive bowel sounds, soft, nontender, nondistended Extremities: Unremarkable Objective Labs Result Diagrams: 11/19/18 05:48 11/19/18 05:48 Labs: Laboratory Results - last 24 hr 11/18/18 11/18/18 11/18/18 11:37 11:37 11:37 WBC 14.3 H RBC 4.38 Hgb 12.7 Hct 37.7 MCV 86.1 MCH 29.0 MCHC 33.7 RDW 14.4 Plt Count 311 Neut % (Auto) 80.2 H Lymph % (Auto) 11.0 L [place] % (Auto) 7.2 Eos % (Auto) 0.4 L Baso % (Auto) 1.2 Neut # (Auto) 63366 H Lymph # (Auto) 1600 [place] # (Auto) 1000 H Eos # (Auto) 100 Baso # (Auto) 200 H PT 12.6 INR 1.1 APTT 29 Sodium 140 Potassium 4.8 Chloride 109 H Carbon Dioxide 25 BUN 50 H Creatinine 0.60 Estimated GFR > 60.0 BUN/Creatinine Ratio 83.3 H Glucose 165 H Calcium 9.5 Total Bilirubin 0.5 AST 18 ALT 17 Alkaline Phosphatase 39 Total Protein 7.0 Albumin 4.0 Globulin 3.0 Albumin/Globulin Ratio 1.3 Amylase Lipase Urine RBC Urine WBC Ur Squamous Epith Cells Ur Renal Epithelial Cell Amorphous Sediment Urine Bacteria Ur Culture Indicated? Blood Type Antibody Screen 11/18/18 11/18/18 11/18/18 13:35 13:35 15:00 WBC RBC Hgb 12.4 Hct 37.0 MCV MCH MCHC RDW Plt Count Neut % (Auto) Lymph % (Auto) [place] % (Auto) Eos % (Auto) Baso % (Auto) Neut # (Auto) Lymph # (Auto) [place] # (Auto) Eos # (Auto) Baso # (Auto) PT INR APTT Sodium Potassium Chloride Carbon Dioxide BUN Creatinine Estimated GFR BUN/Creatinine Ratio Glucose Calcium Total Bilirubin AST ALT Alkaline Phosphatase Total Protein Albumin Globulin Albumin/Globulin Ratio Amylase 69 Lipase 66 Urine RBC None seen Urine WBC 5-10/hpf H Ur Squamous Epith Cells 1-5 /hpf Ur Renal Epithelial Cell 0-1/hpf Amorphous Sediment 1+ Urine Bacteria Few (2-10) H Ur Culture Indicated? Specimen cultured Blood Type Antibody Screen 11/18/18 11/19/18 11/19/18 15:20 05:48 05:48 WBC 10.0 RBC 3.33 L Hgb 9.9 L Hct 28.7 L MCV 86.3 MCH 29.9 MCHC 34.6 RDW 14.4 Plt Count 219 Neut % (Auto) 60.4 Lymph % (Auto) 26.0 [place] % (Auto) 9.8 Eos % (Auto) 2.8 Baso % (Auto) 1.0 Neut # (Auto) 6000 Lymph # (Auto) 2600 [place] # (Auto) 1000 H Eos # (Auto) 300 Baso # (Auto) 100 PT INR APTT Sodium 139 Potassium 4.2 Chloride 111 H Carbon Dioxide 23 BUN 38 H Creatinine 0.60 Estimated GFR > 60.0 BUN/Creatinine Ratio 63.3 H Glucose 137 H Calcium 8.6 Total Bilirubin 0.3 AST 19 ALT 18 Alkaline Phosphatase 33 L Total Protein 5.9 L Albumin 3.1 L Globulin 2.8 Albumin/Globulin Ratio 1.1 Amylase Lipase Urine RBC Urine WBC Ur Squamous Epith Cells Ur Renal Epithelial Cell Amorphous Sediment Urine Bacteria Ur Culture Indicated? Blood Type O Positive Antibody Screen Negative Assessment & Plan Assessment & Plan narrative: 68-year-old female with upper GI bleed secondary to gastric ulcer. Currently hemodynamically stable. Did have drop in hemoglobin hematocrit today. No further evidence of blood loss. Will await surgery's input by my thoughts would be to start clear liquids and advanced diet as tolerated and likely home on Sunday. We will monitor for further bleeding after starting back on oral intake. Will continue the Protonix. We will await biopsies before starting antibiotics. Assessment 2. Hypertension Plan: Continue outpatient metoprolol Quality VTE Deep Vein Thrombosis/Pulmonary Embolism Present on Admission: No
[2018-11-19] MEDS: METOPROLOL ER 25 MG TABLET PO ×2 (09:27→21:19)
[2018-11-19] MEDS: PANTOPRAZOLE 40 MG VIAL IV ×2 (09:27→21:19)
--- NOTE | 2018-11-19 10:43 | PC.NURSE ---
Pt denies dizziness at rest and with ambulation; VSS; pt tolerating clear liquid, BTs and flatulence present; pt denies acid-reflux; LS clear, RA; SBA to bathroom
--- NOTE | 2018-11-19 15:19 | CM.DPC ---
Addendum entered by Monika Hansen LPN 11/19/18 15:54: Met with pt as planned. Found her up in chair, visiting with her brother. She confirms that she is the caregiver for her . Her adult sons do not live with them. She says she is feeling well and has been up in the room independently. She is expecting to go home tomorrow. DCP team will follow prn. Original Note: Discharge Planning/Care Management DCP: assessment: case received, EMR reviewed. Case discussed in Team Rounds this morning. Pt is a 68 year old female who admitted yesterday late afternoon to care of PCP: Dr. Matias Mehta. Dr. Jiménez consulted and his colleage Dr. Riya Chu took pt last night for an EGD: results: dx of bleeding duodenal ulcer and multiple small gastric ulcers. Dr. Mehta was here today to see pt, notes that she is feeling better. Pt is mobilizing in her room. Dr. Mehta will be collaborating with the general surgical team and anticipates at this point that pt will be able to d/c home in a day or 2. Pt lives in [place] with her who carries a dx of Parkinson's. They have 2 adult sons. P: will check in with pt for introduction of self and role and the DCP team will follow for any d/c needs that may arise. CM Discharge Assessment Start: 11/19/18 15:18 Freq: Status: Active Protocol: Document 11/19/18 15:18 ITV (Rec: 11/19/18 15:19 ITV [id number]) Discharge Planning Assessment Advance Directives? No History Provided By Patient Medical Record Household Members family Independent with ADL's Yes Is patient alert and oriented? Yes Whiteboard Updated in Patient Room with Yes name and ext. # of [employer]
--- NOTE | 2018-11-19 20:17 | PM.PN.1 ---
Subjective Date Patient Seen: 11/19/18 Time Patient Seen: 09:00 Interval history: Well good hemodynamics overnight pain in epigastrium resolved No further melana Exam Vital Signs (past 8 hours): - 11/19/18 15:18 11/19/18 19:06 Temperature 98.6 F 98.5 F Pulse Rate 86 85 Respiratory Rate 18 20 Blood Pressure 150/73 H 168/66 H Pulse Oximetry 99 85 L Oxygen Delivery Method Room Air Oxygen Flow Rate 0 Narrative Exam Narrative: Well appering NAD breathing comfortably RRR Abd soft nontender nondistended periphery warm Objective Labs Result Diagrams: 11/19/18 05:48 11/19/18 05:48 Labs: Laboratory Results - last 24 hr 11/19/18 11/19/18 05:48 05:48 WBC 10.0 RBC 3.33 L Hgb 9.9 L Hct 28.7 L MCV 86.3 MCH 29.9 MCHC 34.6 RDW 14.4 Plt Count 219 Neut % (Auto) 60.4 Lymph % (Auto) 26.0 [place] % (Auto) 9.8 Eos % (Auto) 2.8 Baso % (Auto) 1.0 Neut # (Auto) 6000 Lymph # (Auto) 2600 [place] # (Auto) 1000 H Eos # (Auto) 300 Baso # (Auto) 100 Sodium 139 Potassium 4.2 Chloride 111 H Carbon Dioxide 23 BUN 38 H Creatinine 0.60 Estimated GFR > 60.0 BUN/Creatinine Ratio 63.3 H Glucose 137 H Calcium 8.6 Total Bilirubin 0.3 AST 19 ALT 18 Alkaline Phosphatase 33 L Total Protein 5.9 L Albumin 3.1 L Globulin 2.8 Albumin/Globulin Ratio 1.1 Assessment & Plan Assessment & Plan narrative: 68 yo woman POD1 after EGD for UGIB found to bleeding duodenal ulcer - controlled with epi injection now well Plan OK for liquid diet F/u hcts High dose PPI Bismout Quad therapy for presumed H pylori infection Quality VTE Deep Vein Thrombosis/Pulmonary Embolism Present on Admission: No
[2018-11-19] MEDS: BISMUTH SUBSALICYLATE 525 MG/30 ML SUSP PO (21:19)
[2018-11-19] MEDS: DOXYCYCLINE HYCLATE 100 MG TABLET PO (21:19)
[2018-11-19] MEDS: metroNIDAZOLE 250 MG TABLET PO (21:20)
--- NOTE | 2018-11-20 00:15 | PC.NURSE ---
2300- Pt admit for upper GI bleed w/ EGD completed yesterday 11/18. Pt denies any pain, states stool is brown color but remains loose. Advancing diet as tolerated to Full Liquid at this time. R hand IV saline locked; moving SBA to bathroom. BA on for safety reasons at this time.
[2018-11-20 06:01] VITALS: BP 137/59; PULSE 78; RESP 16; TEMP 36.9; O2SAT 97
[2018-11-20 06:20] LABS: Add Manual Diff / Slide Review NO; Basophils Absolute Auto 100 /uL (0-100); Basophils Percent Auto 0.9 % (0-2); Eosinophils Absolute Auto 600 /uL (0-450); Eosinophils Percent Auto 7.2 % (2-4); Hemoglobin 9.3 g/dL (12.0-16.0); Lymphocytes Absolute Auto 1900 /uL (1100-4500); Lymphocytes Percent Auto 24.1 % (25-40); Mean Corpuscular HGB Conc 34.4 % (30-36); Mean Corpuscular Hemoglobin 29.6 PG (26-34); Mean Corpuscular Volume 86.2 fL (80-100); Monocytes Absolute Auto 800 /uL (0-900); Monocytes Percent Auto 10.4 % (3-14); Neutrophils Absolute Auto 4400 /uL (1500-7000); Neutrophils Percent Auto 57.4 % (50-75); Platelet Count 231 X10^3/uL (150-400); Red Blood Cell Count 3.13 X10^6/uL (4.0-5.2); Red Cell Distribution Width 14.4 % (11.6-14.8); White Blood Cell Count 7.7 X10^3/uL (4.5-11.0)
[2018-11-20 06:26] LABS: BUN Creatinine Ratio 35.7 (6-22); Blood Urea Nitrogen 25 mg/dL (7-17); Calcium 8.6 mg/dL (8.4-10.2); Carbon Dioxide 28 mmol/L (22-32); Chloride 109 mmol/L (98-107); Estimated Glomerular Filt Rate > 60.0 mL/min (>60); Glucose 138 mg/dL (80-110); HEMOLYSIS < 15 (0-50); Potassium 4.1 mmol/L (3.4-5.1); Sodium 141 mmol/L (137-145)
[2018-11-20] MEDS: DOXYCYCLINE HYCLATE 100 MG TABLET PO (06:32)
--- NOTE | 2018-11-20 07:35 | P.PN_ITS ---
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 No further epigastric pain ambulating Not light headed Exam Vital Signs (past 8 hours): - 11/20/18 06:01 Temperature 98.4 F Pulse Rate 78 Respiratory Rate 16 Blood Pressure 137/59 L Pulse Oximetry 97 Oxygen Delivery Method Room Air Oxygen Flow Rate 0 Narrative Exam Narrative: looks well Bright affect breathing easily on RA Abd soft nontender non distended Objective Labs Result Diagrams: 11/20/18 06:07 11/20/18 06:07 Labs: Laboratory Results - last 24 hr 11/20/18 11/20/18 06:07 06:07 WBC 7.7 RBC 3.13 L Hgb 9.3 L Hct 27.0 L MCV 86.2 MCH 29.6 MCHC 34.4 RDW 14.4 Plt Count 231 Neut % (Auto) 57.4 Lymph % (Auto) 24.1 L [place] % (Auto) 10.4 Eos % (Auto) 7.2 H Baso % (Auto) 0.9 Neut # (Auto) 4400 Lymph # (Auto) 1900 [place] # (Auto) 800 Eos # (Auto) 600 H Baso # (Auto) 100 Sodium 141 Potassium 4.1 Chloride 109 H Carbon Dioxide 28 BUN 25 H Creatinine 0.70 Estimated GFR > 60.0 BUN/Creatinine Ratio 35.7 H Glucose 138 H Calcium 8.6 Assessment & Plan Assessment & Plan narrative: 68 yo woman HD3 admitted with posterior duodenal bleed controlled endoscopically Hct stable 28.7->27 in last 24hrs HD normal. Bleed arrested Rec: OK for regular diet - i ordered continue 14 days abx tx with bismouth quad therapy for H pylori will need test of cure with h pylori stool antigen in 4 weeks Likely OK to d/c home today No NSAIDS Baby ASA OK Quality VTE Deep Vein Thrombosis/Pulmonary Embolism Present on Admission: No
[2018-11-20 08:16] VITALS: PULSE 72
[2018-11-20 08:20] VITALS: BP 145/69; PULSE 72; RESP 16; TEMP 36.7; O2SAT 98
[2018-11-20] MEDS: BISMUTH SUBSALICYLATE 525 MG/30 ML SUSP PO (10:00)
[2018-11-20] MEDS: PANTOPRAZOLE 40 MG VIAL IV (10:00)
[2018-11-20] MEDS: METOPROLOL ER 25 MG TABLET PO (10:00)
[2018-11-20] MEDS: metroNIDAZOLE 250 MG TABLET PO (10:00)
[2018-11-20 12:10] VITALS: BP 144/69; PULSE 72; RESP 16; TEMP 36.6; O2SAT 98
--- NOTE | 2018-11-20 12:35 | CM.DPC ---
DCP Cont: Met with patient and in her room. Pleasant, introduced self and role. She is hoping to go home today, she had already seen surgeon. She stated, she is feeling better. Dr. Mehta has not yet been in to see her. She has no concerns about discharge. P: DCP to continue to follow and check in with patient for any needs. She could potentially go home today. Xochilt Brown RN/Package Reinspector
--- NOTE | 2018-11-20 13:43 | P.DS_ITS ---
History of Present Illness Chief complaint: Weakness, Black stool Narrative: This is a pleasant 68-year-old female who has a history of hyp ertension and borderline hyperglycemia who presents to the emergency department via EMS with complaints of feeling nauseous dizzy, weak and 2 episodes of black tarry stools. In the emergency department she was found to be presyncopal and they were unable to even really sit her up without significant dizziness. Her vital signs were stable and she was not anemic. She was grossly positive guaiac in stools appeared melanotic and she was admitted for further monitoring and treatment. She is a well known patient to me although I do not see her frequently and she was last seen approximately 1 year ago. She states that she has been in good health. She only takes metoprolol 25 mg twice daily and states that her blood pressures been well controlled. She and her were doing a lot of work yesterday involving moving boxes down a ladder. She then just felt that she had overdone it and did not eat and then when she awakened this morning she felt nauseous she had diaphoresis and then black tarry stools and was so dizzy and weak that her was unable to even get her in the car. She never had any abdominal pain. She never had any bright red blood per rectum. Patient drinks 2-3 drinks of alcohol daily and has been taking aspirin intermittently 325 mg to but not on a daily basis. She takes this for her knee pain. She occasionally has some reflux but nothing chronic. She has not had any change in her bowels other than above. She was given IV fluids in the ER and is feeling somewhat better. Past medical history: 1. Hypertension well control 2. Hyperglycemia 3. Obesity 4. Normal spontaneous vaginal deliveries x2 Medications: Aspirin 81 mg daily, metoprolol tartrate 25 mg p.o. b.i.d., multivitamin daily Allergies: Penicillin causes rash and swelling; diazepam causes anxiety Past surgical history 1. Intestinal obstruction requiring surgical treatment 2. Large abdominal wall hernia Health rated behavior: No regular exercise. But fairly active. Non smoker and never a smoker 2-3 alcohol drinks nightly Family history: Mom is alive and well and healthy Dad has type 2 diabetes Social history: Patient is and lives with her in [place]. He has Parkinson's disease. She has 2 grown sons. Discharge Providers Date of admission: 11/18/18 15:07 Discharge Date: 11/20/18 Primary care physician: Kendra Mehta MD Consults: 11/18/18 14:40 Consult to Physician Stat Comment: Consulting Provider: [facility] Reason for consultation: GI bleed Has provider been notified: Yes Discharge provider: Kendra Mehta MD Summary Discharge Diagnosis: Acute upper GI bleed secondary to posterior duodenal ulcer and gastric ulcer Anemia secondary to Acute UGI bleed HTN Hospital Course: Patient presented to ER via EMS secondary to feeling queasy and having black tarry stools and being weak. Patient was found have an acute upper GI bleed. Doctors left toe ski from General surgery was consulted and on the evening of a date of admission underwent EGD which showed a posterior duodenum ulcer which was bruising. This was treated with epinephrine. There were several other nonbleeding gastric ulcers. Patient remained hemodynamically stable. Her hemoglobin hematocrit did drop the following day but remained stable and patient's clinical condition quickly improved. She was treated with Protonix 40 mg IV twice daily. She was started on empiric treatment for H pylori with bismuth subsalicylate, doxycycline, metronidazole and Protonix. She was doing well and on hospital day 3. She was discharged home in stable condition to follow up with me next week. She will continue on her metoprolol. Status at Discharge Cognitive/behavioral status at discharge: oriented Functional status at discharge: independent ambulation Overall status at discharge: patient is progressing back to baseline Time Spent with Patient Greater than 30 minutes Exam Vital Signs (past 8 hours): - 11/20/18 06:01 11/20/18 08:16 11/20/18 08:20 Temperature 98.4 F 98.1 F Pulse Rate 78 72 72 Respiratory Rate 16 16 Blood Pressure 137/59 L 145/69 H Pulse Oximetry 97 98 11/20/18 12:10 Temperature 97.8 F Pulse Rate 72 Respiratory Rate 16 Blood Pressure 144/69 H Pulse Oximetry 98 Oxygen Delivery Method Room Air Oxygen Flow Rate 0 Narrative Exam Narrative: Alert and oriented x3, sitting in chair in no apparent distress Had bowel movement today which was black in color but not foul smelling and not diarrheal. Tolerating full diet without any difficulties. Having no pain. Still feels tired but no weakness and no dizziness, no lightheadedness no palpitations Afebrile vital signs are stable Neck: Supple without adenopathy Chest: Clear to auscultation without wheezes rhonchi or crackles Cor: Regular rate and rhythm without murmur rubs or gallops Abdomen: Positive bowel sounds, soft, nontender, nondistended, no hepatos plenomegaly Extremities: No edema, pulses intact Objective Labs Result Diagrams: 11/20/18 06:07 11/20/18 06:07 Labs: Laboratory Results - last 24 hr 11/20/18 11/20/18 06:07 06:07 WBC 7.7 RBC 3.13 L Hgb 9.3 L Hct 27.0 L MCV 86.2 MCH 29.6 MCHC 34.4 RDW 14.4 Plt Count 231 Neut % (Auto) 57.4 Lymph % (Auto) 24.1 L [place] % (Auto) 10.4 Eos % (Auto) 7.2 H Baso % (Auto) 0.9 Neut # (Auto) 4400 Lymph # (Auto) 1900 [place] # (Auto) 800 Eos # (Auto) 600 H Baso # (Auto) 100 Sodium 141 Potassium 4.1 Chloride 109 H Carbon Dioxide 28 BUN 25 H Creatinine 0.70 Estimated GFR > 60.0 BUN/Creatinine Ratio 35.7 H Glucose 138 H Calcium 8.6 Discharge Plan Discharge Plan Patient Disposition: Home Discharge comment: Patient discharged to home in stable condition. She will continue on her outpatient metoprolol. She will not take any anti- inflammatories or aspirin. She will be on Pepto-Bismol, doxycycline, Protonix, metronidazole. She will follow up with me next week. Discharge Med Rec/Prescriptions Prescriptions: New metronidazole 250 mg Tablet 250 mg PO QID Qty: 56 RF: 0 bismuth subsalicylate [Pepto-Bismol] 262 mg/15 mL Suspension 30 ml PO QID Qty: 56 RF: 0 metoprolol succinate 25 mg Tablet Extended Release 24 Hr 25 mg PO BID Qty: 60 RF: 0 doxycycline hyclate 100 mg Tablet 100 mg PO 0700,1900 Qty: 28 RF: 0 Continued multivitamin Tablet 1 tab PO DAILY Qty: 0 RF: 0 metoprolol tartrate 25 MG tablet 25 mg PO BID Qty: 0 RF: 0 Discontinued aspirin 81 MG tablet,delayed release (DR/EC) 81 mg PO DAILY Qty: 0 RF: 0 Follow up/Referrals: Kendra Mehta MD [Primary Care Provider] - Provider Discharge Instructions Diet: Diet as Tolerated Visit Report/Discharge Packet Instructions: DI for Peptic Ulcer Stand Alone Forms: EGD Result: [facility] Discharge Data Primary Care Provider: Kendra Mehta Attending Provider: Kendra Mehta Admit Date/Time: 11/18/18 15:07 Quality VTE Deep Vein Thrombosis/Pulmonary Embolism Present on Admission: No
== END 2018-11-20 14:40 | disposition home or self-care (01) | DRG 378 ==
LOC: ED 14:59 → AC 15:08
PROVIDERS: Emergency Medicine; Surgery; Admitting Provider Family Medicine; Emergency Provider Internal Medicine; Family Provider Family Medicine; PCP Family Medicine; Visit Provider Family Medicine
PROC: 0DJ08ZZ Inspection of Upper Intestinal Tract, Via Natural or Artificial Opening Endoscopic (ICD-10-PCS; CPT 43235; principal; 2018-11-18 19:15)
DX: K26.4 Chronic or unspecified duodenal ulcer with hemorrhage (principal); D62 Acute posthemorrhagic anemia; K25.4 Chronic or unspecified gastric ulcer with hemorrhage; I10 Essential (primary) hypertension; E66.9 Obesity, unspecified; Z68.37 Body mass index [BMI] 37.0-37.9, adult
CPT/HCPCS: 36415; 43239; 80048; 80053; 81003; 81015; 82150; 83690; 85014; 85018; 85025; 85610; 85730; 86850; 86900; 86901; 87086; 88305; 88313; 88342; 93005; 96361; 96374; 96375; 99231; 99232; 99283; 99285; C9113; J0171; J2250; J2405; J2704; J3010

== ENCOUNTER → 2018-12-05 14:34 | Outpatient (CLI) | payer MEDICARE, OTHER, SELFPAY ==
[2018-11-18 15:54] VITALS: BMI 37.1
--- NOTE | 2018-12-05 | DI.ECHO.S_ITS ---
[facility] +---------+ : : [address] : : : : [id number] : : : : Phone: [phone]+ Echocardiogram Report + + :Name: ML OLIVAREZ Study Date: 12/05/2018 Height: 68 in : :[facility] Weight: 233 lb : : Gender: Female BSA: 2.2 m2 : :: 1950 Age: 68 yrs BP: 155/77 mmHg: :Reason For Study: MURMUR : : Performed By: Jonah oCnnelly : :Referring: BENNIE MAURER : + + Interpretation Summary The ejection fraction is estimated to be 60-65%. There is mild aortic valve sclerosis. There is no significant valvular heart disease. Procedure: A two-dimensional transthoracic echocardiogram with color flow and Doppler was performed. The study quality was technically adequate. Comparison is made with the echocardiogram of 02/06/12. The patient was in normal sinus rhythm during the exam. The patient had occasional PVCs during the exam. Left Ventricle: The left ventricle is normal in size. There is normal left ventricular wall thickness. The ejection fraction is estimated to be 60-65%. There are no focal wall motion abnormalities. Right Ventricle: The right ventricle is normal in size and function. Atria: The left atrium is moderately dilated. Right atrial size is normal. The interatrial septum is intact with no evidence for an atrial septal defect. Mitral Valve: The mitral valve is normal in structure and function. There is mild mitral annular calcification. There is trace mitral regurgitation. Aortic Valve: The aortic valve is trileaflet. The aortic valve opens well. There is mild aortic valve sclerosis. There is no hemodynamically significant valvular aortic stenosis. No aortic regurgitation is present. Tricuspid Valve: The tricuspid valve is normal in structure and function. No tricuspid regurgitation. Pulmonary artery pressures cannot be estimated because of the lack of a measurable TR jet velocity. Pulmonic Valve: The pulmonic valve is not well visualized. Great Vessels: The aortic root is normal size. The dimensions of the ascending aorta are normal. The aortic arch is at the upper limits of normal in size. The pulmonary artery is normal size. The IVC is of normal diameter and collapses greater than 50% with a sniff. This suggests a low right atrial pressure of 3 mm Hg. Pericardium/ Pleura There is no pericardial effusion. There is no pleural effusion. MMode/2D Measurements & Calculations LVIDd: 5.6 cm LVOT diam: 2.1 cm LVIDs: 3.0 cm Ao root diam: 2.9 cm FS: 45.9 % Aortic Jxn: 2.1 cm EPSS: 0.39 cm asc Aorta Diam: 3.1 cm IVSd: 0.98 cm Ao Arch Diam (Prox Trans): 3.1 cm LVPWd: 1.0 cm LV johnson. diameter/BSA (cm/m^2): 2.6 LV sys. diameter/BSA (cm/m^2): 1.4 LA dimension: 4.6 cm RA long axis: 4.9 cm LA A2 area: 28.8 cm2 RA area: 18.0 cm2 LA A4 area: 26.9 cm2 RA vol: 55.4 ml LA length (vol): 6.3 cm RA : 25.4 ml/m2 LA vol: 104.2 ml IVC diam: 1.6 cm LA vol index: 47.8 ml/m2 TONEY (plan): 2.3 cm2 Doppler Measurements & Calculations Ao V2 max: 213.3 cm/sec LVOT Max Mansoor: 101.1 cm/sec Ao V2 mean: 149.6 cm/sec LV V1 max P.1 mmHg Ao max P.2 mmHg LV V1 VTI: 27.8 cm Ao mean P.8 mmHg TONEY(I,D): 1.8 cm2 Ao V2 VTI: 49.8 cm TONEY(V,D): 1.6 cm2 sev ratio: 0.56 TONEY indexed to BSA (cm^2/m^2): 0.84 MV E max mansoor: 102.6 cm/sec PA V2 max: 96.8 cm/sec MV A max mansoor: 101.7 cm/sec PA V2 mean: 72.8 cm/sec MV E/A: 1.0 PA mean P.3 mmHg Med Peak E' Mansoor: 5.8 cm/sec PA pr(Accel): 12.5 mmHg E/E' med: 17.7 PA Accel Time: 0.15 sec Lat Peak E' Mansoor: 7.0 cm/sec E/E' lat: 14.6 E/e' average: 16.2 MV dec time: 0.24 sec SV(LVOT): 91.7 ml Reading Physician:05:14 PM
== END ==
PROVIDERS: PCP Family Medicine; Visit Provider Family Medicine
DX: I35.8 Other nonrheumatic aortic valve disorders (principal); R01.1 Cardiac murmur, unspecified
CPT/HCPCS: 93306

== ENCOUNTER → 2019-02-13 16:11 | Outpatient (CLI) | payer MEDICARE, OTHER, SELFPAY ==
[2018-11-18 15:54] VITALS: BMI 37.1
--- NOTE | 2019-02-13 | DI.MG.S_ITS ---
BILATERAL DIGITAL SCREENING MAMMOGRAM 3D/2D WITH CAD: 02/13/2019 CLINICAL: Routine screening. Comparison is made to exams dated: 01/07/2018 mammogram, 11/13/2016 mammogram, and 11/05/2015 mammogram - [facility]. There are scattered fibroglandular elements in both breasts. Current study was also evaluated with a Computer Aided Detection (CAD) system. There are benign calcifications in both breasts. There also is a biopsy clip in the left breast. No significant masses, calcifications, or other findings are seen in either breast. There has been no significant interval change. IMPRESSION: There is no mammographic evidence of malignancy. A 1 year screening mammogram is recommended. This exam was interpreted at Station ID: [id number]. NOTE: For mammograms, a report in lay terms will be sent to the patient. Approximately 15% of breast malignancies will not be visualized mammographically. In the management of a palpable breast mass, a negative mammogram must not discourage biopsy of a clinically suspicious lesion. Electronically Signed By: Raphael hernández/aakash:02/13/2019 16:58:46 letter sent: Normal Exam ACR BI-RADS Category 2: Benign Finding(s) 3342F
== END ==
PROVIDERS: PCP Family Medicine; Visit Provider Family Medicine
DX: Z12.31 Encounter for screening mammogram for malignant neoplasm of breast (principal)
CPT/HCPCS: 77063; 77067

== ENCOUNTER → 2019-07-14 09:29 | Outpatient (CLI) | payer MEDICARE, OTHER, SELFPAY ==
[2018-11-18 15:54] VITALS: BMI 37.1
== END ==
PROVIDERS: PCP Family Medicine; Referring Provider Family Medicine; Visit Provider Family Medicine
DX: R29.890 Loss of height (principal); Z78.0 Asymptomatic menopausal state; Z85.3 Personal history of malignant neoplasm of breast
CPT/HCPCS: 77080

== ENCOUNTER → 2020-04-07 13:17 | Outpatient (CLI) | payer MEDICARE, OTHER, SELFPAY ==
[2018-11-18 15:54] VITALS: BMI 37.1
--- NOTE | 2020-04-07 | DI.MG.S_ITS ---
BILATERAL DIGITAL SCREENING MAMMOGRAM 3D/2D WITH CAD: 04/07/2020 CLINICAL: Routine screening. Comparison is made to exams dated: 02/13/2019 mammogram, 01/07/2018 mammogram, and 11/13/2016 mammogram - [facility]. There are scattered fibroglandular elements in both breasts. Current study was also evaluated with a Computer Aided Detection (CAD) system. There are benign calcifications in both breasts. There also is a biopsy clip in the left breast. No significant masses, calcifications, or other findings are seen in either breast. There has been no significant interval change. IMPRESSION: BENIGN There is no mammographic evidence of malignancy. A 1 year screening mammogram is recommended. This exam was interpreted at Station ID: [id number]. NOTE: For mammograms, a report in lay terms will be sent to the patient. Approximately 15% of breast malignancies will not be visualized mammographically. In the management of a palpable breast mass, a negative mammogram must not discourage biopsy of a clinically suspicious lesion. Electronically Signed By: Carla whitten/aakash:04/07/2020 16:44:11 letter sent: Normal Exam ACR BI-RADS Category 2: Benign Finding(s) 3342F
== END ==
PROVIDERS: PCP Family Medicine; Referring Provider Family Medicine; Visit Provider Family Medicine
DX: Z12.31 Encounter for screening mammogram for malignant neoplasm of breast (principal)
CPT/HCPCS: 77063; 77067

== ENCOUNTER → 2020-06-18 10:20 | Outpatient (CLI) | payer MEDICARE, OTHER, SELFPAY ==
[2018-11-18 15:54] VITALS: BMI 37.1
--- NOTE | 2020-06-18 | DI.US.S_ITS ---
PROCEDURE: US PELVIC COMPLETE INDICATIONS: Postmenopausal bleeding TECHNIQUE: Real-time scanning was performed of the pelvic organs, with image documentation. Additional endovaginal scanning was necessary due to incomplete visualization of the adnexal and endometrial structures by transabdominal scanning. COMPARISON: [facility], , PELVIC COMPLETE, 05/20/2012, 11:10. FINDINGS: Transabdominal scanning: Limited scanning through the kidneys shows no hydronephrosis. No pathologic free abdominal or pelvic fluid. Endovaginal scanning: Uterus: Uterus is normal in size at 7.7 x 4.4 x 5.6 cm. The endometrium measures 22 mm in combined thickness. The endometrium is mildly heterogeneous with some small cystic spaces. Ovaries: The right ovary measures 2.4 x 1.5 x 1.8 cm. The left ovary is not visualized. IMPRESSION: 1. Marked endometrial thickening to 22 mm. In the setting of postmenopausal bleeding, further evaluation with endometrial biopsy is recommended. 2. Left ovary not visualized. Dictated by: William Iglesias M.D. on 06/18/2020 at 14:11 Approved by: William Iglesias M.D. on 06/18/2020 at 14:15
== END ==
PROVIDERS: PCP Family Medicine; Referring Provider Family Medicine; Visit Provider Family Medicine
DX: N95.0 Postmenopausal bleeding (principal); R93.89 Abnormal findings on diagnostic imaging of other specified body structures
CPT/HCPCS: 76856

== ENCOUNTER → 2020-07-09 09:48 | Outpatient (CLI) | payer MEDICARE, OTHER, SELFPAY ==
[2018-11-18 15:54] VITALS: BMI 37.1
[2020-07-09 10:14] LABS: COVID19 -Nasal RAPID Negative (Negative)
== END ==
PROVIDERS: PCP Family Medicine; Visit Provider Obstetrics & Gynecology
DX: Z01.812 Encounter for preprocedural laboratory examination (principal); Z20.822 Contact with and (suspected) exposure to COVID-19
CPT/HCPCS: 87635

== ENCOUNTER 2020-07-12 07:40 | Day surgery (SDC) | payer MEDICARE, OTHER, SELFPAY ==
[2018-11-18 15:54] VITALS: BMI 37.1
[2020-07-12] VITALS (8 sets, daily range): BP systolic 150–179; BP diastolic 62–86; PULSE 55–79; RESP 12–16; TEMP 36.4–37.1; O2SAT 94–98; BMI 38.3
--- NOTE | 2020-07-12 | PATH_ITS ---
[facility] Accession Number: [id number] . 01 Material submitted: . endometrium - MULTIPLE ENDOMETRIAL POLYPS . 01 Clinical history: . D/C HYSTEROSCOPY W/POLYPECTOMY . 02 Diagnosis: Endometrial Polyps, Biopsy: Multiple polypoid fragments of noncycling/inactive endometrium and benign endometrial polyps. No evidence of neoplasia or hyperplasia. V 07/15/2020 1658 Local . 02 Electronically signed: . Saray Phillips MD, Pathologist NPI- [id number] . 01 Gross description: . The specimen is received in formalin, labeled endometrial polyps and consists of multiple hightower-pink fragments of soft tissue measuring 5.0 x 3.0 x 2.0 cm in aggregate. The specimen is entirely submitted in cassettes A1-A5. (EA:[id number]) /V 07/13/2020 1322 Local . 02 Pathologist provided ICD-10: N95.0 . 02 CPT . 660572 Performed at: [address] [facility] [address] [facility], [place], [place] [id number] MD Bi Langford MD Phone: [phone] Performed at: 02 [facility] [address] [place], [place] [id number] MD Saray Phillips MD Phone: [phone]
[2020-07-12] MEDS: LACTATED RINGERS 1,000 ML 100 ML IV (08:33)
--- NOTE | 2020-07-12 10:13 | PM.HP.1 ---
History of Present Illness History of Present Illness Date Patient Seen: 07/12/20 Time Patient Seen: 10:14 Chief complaint: D&C HYSTEROSCOPY W/POLYPECTOMY Narrative: Patient is a 69-year-old 2 para 2 who presents for a D&C hysteroscopy with polypectomy. Patient had postmenopausal bleeding and was found to have a polyp on ultrasound. Patient History Medical History (Updated 07/12/20 @ 08:36 by Emma Salazar RN) Arthritis Bowel obstruction Dysphagia Esophageal stricture Gastric ulcer GERD (gastroesophageal reflux disease) Hypertension Irregular heart beat Obesity Postmenopausal bleeding Family & Social History Social History: household members family Tobacco & Substance use: Smoking Status Never smoker alcohol intake current alcohol intake frequency 0-2 drinks per day Substance Use Type does not use Meds Home Medications and Allergies Home Medications Medication Instructions Recorded Confirmed Type multivitamin 1 tab PO DAILY #0 05/16/12 07/12/20 History metoprolol succinate 25 mg PO BID #60 tab 11/20/18 07/12/20 Rx lisinopril 20 mg PO BID 07/12/20 07/12/20 History Allergies Allergy/AdvReac Type Severity Reaction Status Date / Time diazepam Allergy Unknown anxiousness Verified 07/12/20 08:07 Penicillins Allergy Unknown rash, Verified 07/12/20 08:07 swelling everywhere Exam Vital Signs (past 8 hours): - 07/12/20 08:15 Temperature 98.7 F Pulse Rate 66 Respiratory Rate 16 Blood Pressure 165/72 H Pulse Oximetry 97 Oxygen Delivery Method Room Air Narrative Exam Narrative: HEENT: No thyromegaly, no anterior cervical or supraclavicular lymphadenopathy. Lungs:Clear to auscultation bilaterally, no wheezes. Cardiovascular: Regular rate and rhythm, no murmurs, rubs, or gallops. Abdomen: Multiple well-healed scars. No hepatosplenomegaly. No masses palpable. External genitalia: Normal Vagina: Normal Cervix: Parous Bimanual exam: 8 Week size anteverteduterus. Mobile. no adnexal masses or tenderness Assessment & Plan Assessment & Plan narrative: Assessment: 69-year-old 2 para 2 with postmenopausal bleeding, and endometrial hyperplasia Polyp by biopsy Plan: D&C hysteroscopy with polypectomy The risks, benefits, and alternatives to the procedure were explained to the patient. The risks including bleeding, infection, and uterine perforation. She understands these risks and agrees to proceed. A full par Q was held and consent form was signed. COVID-19 COVID-19 status: Negative Result date/Date tested (Pos, Neg/Pending): 07/09/20 Time Spent With Patient Time with patient: 15-24 minutes
--- NOTE | 2020-07-12 10:18 | PM.PREOP ---
Pre-operative Note COVID-19 COVID-19 status: Negative Result date/Date tested (Pos, Neg/Pending): 07/09/20 Interval Note History & Physical reviewed/Exam performed by Physician: Yes Changes to H&P: No H&P completed within 30 days and has changed as indicated here:: 07/12/20
--- NOTE | 2020-07-12 10:46 | SUR.OPER ---
Lithotomy on padded OR bed, head on pillow, arms secured on padded arm boards at <90 degrees abduction. Legs secured in padded yellow fins stirrups.
--- NOTE | 2020-07-12 11:10 | PM.GYNOP.1 ---
Operative Date/Time/Diagnoses Date of procedure: 07/12/20 Time of procedure: 11:10 Pre-op diagnosis: [employer] bleeding Endometrial hyperplasia Endometrial polyps Post-op diagnosis: same Procedure & Clinicians Procedure: Procedures Operation Date: 07/12/20 09:15 Actual Procedures Side Surgeon p D&C Hysteroscopy/Polypectomy Paris Rangel MD Indications: Postmenopausal bleeding Endometrial hyperplasia by ultrasound Endometrial polyp by office biopsy Surgeon: Paris Rangel Anesthesia Type: General (LMA) Operative Notes Findings: Eight week size anteverted uterus Approximately 10 intrauterine polyp Both fallopian tube ostia observed Closure Type: not applicable Specimen(s): endometrial polyp Estimated blood loss (mL): 15 Blood products transfused: none Procedure in detail: After informed consent was obtained, the patient was taken to the operating room where she was placed in the dorsal supine position. After adequate LMA general anesthesia was achieved, she was placed in the dorsal lithotomy position, and prepped and draped in the usual sterile fashion. A time-out was performed. A bivalve speculum was placed into the vagina and the anterior lip of the cervix was grasped with a single-tooth tenaculum. The cervical os was sequentially dilated to the # 8 Hegar dilator. The hysteroscope passed easily into the endometrial cavity. A large number of polyps were seen within the endometrial cavity. The hysteroscope was removed. The polyp forceps were used to remove approximately 6 polyps. The fluid was changed to sorbitol. The resectoscope then passed easily into the endometrial cavity. With settings at 60 cut and 40 cautery, the remainder of the polyps were resected down to the base. Hemostasis was achieved. The hysteroscope was removed. The polyp forceps were used to remove the remaining pieces of polyp from the endometrial cavity. One more pass with the hysteroscope revealed a clear intrauterine cavity. The instruments were removed from the uterus. The single-tooth tenaculum was removed from the anterior lip of the cervix. The bivalve speculum was removed from the vagina. Sponge, lap, and instrument counts were correct x2. The patient tolerated the procedure well, and was taken to PACU in stable condition. Complications: none Post-operative Condition: stable Disposition: PACU Plan for aftercare: Home after recovery
--- NOTE | 2020-07-12 11:18 | SUR.PHASEI ---
Received to PACU after general anesthesia. Airway patent, self maintained. Report received from Dr Jean Baptiste and FELIPE Montoya. [facility] D/I.
--- NOTE | 2020-07-12 14:18 | SUR.PHASEII ---
1140-Pt rcvd in phase 2 in stable condition, denies pain or nausea. Drinking apple juice without problems and wanting to relax for a bit feels groggy, resting comfortably with no c/o
== END 2020-07-12 12:43 | disposition home or self-care (01) ==
PROVIDERS: PCP Family Medicine; Referring Provider Obstetrics & Gynecology; Visit Provider Obstetrics & Gynecology
PROC: 0UDB8ZZ Extraction of Endometrium, Via Natural or Artificial Opening Endoscopic (ICD-10-PCS; CPT 58558; principal; 2020-07-12 09:15)
DX: N84.0 Polyp of corpus uteri (principal); I10 Essential (primary) hypertension
CPT/HCPCS: 58558; J1100; J1885; J2405; J2704; J3010

== ENCOUNTER → 2021-11-21 13:32 | Outpatient (CLI) | payer MEDICARE, OTHER, SELFPAY ==
[2018-11-18 15:54] VITALS: BMI 37.1
--- NOTE | 2021-11-21 13:34 | DI.ECHO.S_ITS ---
[facility]---------+ [facility] +---------+ : : [address] : : : : [id number] : : : : Phone: [phone] Echocardiogram Report + + :Name: ML OLIVAREZ Study Date: 11/21/2021 Height: 66 in : :[facility] ReadingLocation: Weight: 230 lb : : Gender: Female BSA: 2.1 m2 : :: 1950 Age: 71 yrs BP: 158/87 mmHg: :Reason For Study: OTHER NONRHEUMATIC AORTIC VALVE DISORDERS : :Ordering Physician: ERASTO, : :BENNIE Performed By: Marie Heard : :Referring: BENNIE MAURER : + + Interpretation Summary There is mild concentric left ventricular hypertrophy. The ejection fraction is estimated to be 60-65%. Grade I diastolic dysfunction. The right ventricle is normal in size and function. The left atrium is mildly dilated. There is mild aortic stenosis. Unable to estimate PASP. Compared to the prior study dated 12/05/2018, no significant progression of the aortic valve disease with only a slight increase in gradient however similar calculated valve area. Procedure: A two-dimensional transthoracic echocardiogram with color flow and Doppler was performed. The study quality was technically adequate. Comparison is made with the echocardiogram of 12/05/2018. Left Ventricle: The left ventricle is normal in size. There is mild concentric left ventricular hypertrophy. The LVOT velocity is 1 m/s. Measured LVOT diameter 2.1 cm. The ejection fraction is estimated to be 60-65%. Grade I diastolic dysfunction. Right Ventricle: The right ventricle is normal in size and function. Atria: The left atrium is mildly dilated. Right atrial size is normal. There is no Doppler evidence for an interatrial shunt. Mitral Valve: The mitral valve leaflets are slightly calcified. There is trace mitral regurgitation. Aortic Valve: The aortic valve is mildly calcified. The aortic valve is trileaflet. There is mild aortic stenosis. The peak aortic velocity is 2.1 m/sec. The aortic valve mean gradient is 12 mmHg. The calculated aortic valve area is 1.6 cm2. No aortic regurgitation is present. Tricuspid Valve: The tricuspid valve is normal in structure and function. There is trace tricuspid regurgitation. Pulmonary artery pressures cannot be estimated because of the lack of a measurable TR jet velocity. Pulmonic Valve: The pulmonic valve is not well seen, but is grossly normal. There is no pulmonic valvular regurgitation. Great Vessels: The aortic root is normal size. The dimensions of the ascending aorta are normal. The IVC is of normal diameter and collapses greater than 50% with a sniff. This suggests a low right atrial pressure of 3 mm Hg. Pericardium/ Pleura There is no pericardial effusion. There is no pleural effusion. MMode/2D Measurements & Calculations LVIDd: 4.7 cm LVOT diam: 2.0 cm LVIDs: 3.1 cm Ao root diam: 2.7 cm FS: 34.6 % asc Aorta Diam: 3.1 cm IVSd: 1.2 cm Ao Arch Diam (Prox Trans): 2.8 cm LVPWd: 1.0 cm LV johnson. diameter/BSA (cm/m^2): 2.2 LV sys. diameter/BSA (cm/m^2): 1.4 LA A2 area: 24.6 cm2 RA long axis: 4.8 cm LA A4 area: 21.0 cm2 RA area: 14.5 cm2 LA length (vol): 5.3 cm RA vol: 37.6 ml LA vol: 82.4 ml RA : 17.7 ml/m2 LA vol index: 38.8 ml/m2 IVC diam: 1.4 cm RVD1 (basal): 3.7 cm RVD2 (mid): 3.5 cm TAPSE: 2.3 cm Doppler Measurements & Calculations Ao V2 max: 223.0 cm/sec LVOT Max Mansoor: 98.5 cm/sec Ao V2 mean: 162.3 cm/sec LV V1 max P.9 mmHg Ao max P.0 mmHg LV V1 VTI: 26.0 cm Ao mean P.6 mmHg TONEY(I,D): 1.6 cm2 Ao V2 VTI: 51.0 cm TONEY(V,D): 1.4 cm2 sev ratio: 0.51 TONEY indexed to BSA (cm^2/m^2): 0.77 MV E max mansoor: 87.9 cm/sec TR max mansoor: 231.7 cm/sec MV A max mansoor: 117.7 cm/sec TR max P.5 mmHg MV E/A: 0.75 PA V2 max: 111.1 cm/sec Med Peak E' Mansoor: 4.5 cm/sec PA V2 mean: 80.2 cm/sec E/E' med: 19.6 PA mean P.9 mmHg Lat Peak E' Mansoor: 5.7 cm/sec PA pr(Accel): 56.7 mmHg E/E' lat: 15.4 E/e' average: 17.5 MV dec time: 0.40 sec SV(ESPERANZAOT): 83.1 ml Reading Physician:03:48 PM
== END ==
PROVIDERS: PCP Family Medicine; Referring Provider Family Medicine; Visit Provider Family Medicine
DX: I35.0 Nonrheumatic aortic (valve) stenosis (principal)
CPT/HCPCS: 93306

== ENCOUNTER → 2023-01-09 11:40 | Outpatient (CLI) | payer MEDICARE, OTHER, SELFPAY ==
[2018-11-18 15:54] VITALS: BMI 37.1
--- NOTE | 2023-01-09 11:44 | DI.MG.S_ITS ---
BILATERAL DIGITAL SCREENING MAMMOGRAM 3D/2D WITH CAD: 01/09/2023 CLINICAL: Routine screening. Comparison is made to exams dated: 04/07/2020 mammogram, 02/13/2019 mammogram, and 01/07/2018 mammogram - [facility]. There are scattered areas of fibroglandular density in both breasts (category b / 25%-50% glandular tissue). Current study was also evaluated with a Computer Aided Detection (CAD) system. There are benign calcifications in both breasts. There also is a biopsy clip in the left breast. No significant masses, calcifications, or other findings are seen in either breast. There has been no significant interval change. IMPRESSION: BENIGN There is no mammographic evidence of malignancy. A 1 year screening mammogram is recommended. Based on the Tyrer Cuzick model (a risk assessment model) the patient's lifetime risk is 4.8% and her 10 year risk is 3.0%. According to the ACR, ACS, and NCCN guidelines, an annual breast MRI exam along with mammogram is recommended if the patient's lifetime risk is 20% or greater. This exam was interpreted at Station ID: [id number]. NOTE: For mammograms, a report in lay terms will be sent to the patient. Approximately 15% of breast malignancies will not be visualized mammographically. In the management of a palpable breast mass, a negative mammogram must not discourage biopsy of a clinically suspicious lesion. Electronically Signed By: Adalberto calvo/aakash:01/09/2023 12:35:14 letter sent: Normal Exam ACR BI-RADS Category 2: Benign Finding(s) 3342F
== END ==
PROVIDERS: PCP Family Medicine; Referring Provider Family Medicine; Visit Provider Family Medicine
DX: Z12.31 Encounter for screening mammogram for malignant neoplasm of breast (principal)
CPT/HCPCS: 77063; 77067

== ENCOUNTER → 2024-01-21 07:53 | Outpatient (CLI) | payer MEDICARE, OTHER, SELFPAY ==
[2018-11-18 15:54] VITALS: BMI 37.1
--- NOTE | 2024-01-21 07:54 | DI.MG.S_ITS ---
BILATERAL DIGITAL SCREENING MAMMOGRAM 3D/2D WITH CAD: 01/21/2024 CLINICAL: Routine screening. Comparison is made to exams dated: 01/09/2023 mammogram, 04/07/2020 mammogram, and 02/13/2019 mammogram - [facility]. There are scattered areas of fibroglandular density in both breasts (category b / 25%-50% glandular tissue). Current study was also evaluated with a Computer Aided Detection (CAD) system. There are benign calcifications in both breasts. There also is a biopsy clip in the left breast. No significant masses, calcifications, or other findings are seen in either breast. There has been no significant interval change. IMPRESSION: BENIGN There is no mammographic evidence of malignancy. A 1 year screening mammogram is recommended. Based on the Tyrer Cuzick model (a risk assessment model) the patient's lifetime risk is 4.6% and her 10 year risk is 3.1%. According to the ACR, ACS, and NCCN guidelines, an annual breast MRI exam along with mammogram is recommended if the patient's lifetime risk is 20% or greater. This exam was interpreted at Station ID: [id number]. NOTE: For mammograms, a report in lay terms will be sent to the patient. Approximately 15% of breast malignancies will not be visualized mammographically. In the management of a palpable breast mass, a negative mammogram must not discourage biopsy of a clinically suspicious lesion. Electronically Signed By: Carla whitten/aakash:01/21/2024 11:54:38 letter sent: Normal Exam ACR BI-RADS Category 2: Benign Finding(s) 3342F
== END ==
LOC: MAMMO 07:53
PROVIDERS: PCP Family Medicine; Referring Provider Family Medicine; Visit Provider Family Medicine
DX: Z12.31 Encounter for screening mammogram for malignant neoplasm of breast (principal); R92.323 Mammographic fibroglandular density, bilateral breasts
CPT/HCPCS: 77063; 77067

== ENCOUNTER → 2024-03-03 15:02 | Outpatient (CLI) | payer MEDICARE, OTHER, SELFPAY ==
[2018-11-18 15:54] VITALS: BMI 37.1
--- NOTE | 2024-03-03 15:03 | DI.RAD.S_ITS ---
PROCEDURE: XR DEXA AXIAL SKELETON INDICATIONS: OSTEOPENIA COMPARISON: [facility], , XR DEXA AXIAL SKELETON, 07/14/2019, 9:48. [facility], CR, DEXA AXIAL SKELETON, 11/13/2016, 13:18. FINDINGS: Lumbar Spine: Bone mineral density 1.148 g/cm2, T score 0.9, previously 0.8 Left Hip: Bone mineral density 0.982 g/cm2, T score 0.3, previously 0.0. Right Hip: Bone mineral density 0.929 g/cm2, T score -0.1, previously -0.4. Fracture Risk Calculation (when applicable): 10-year fracture risk of a major osteoporotic fracture 7.0 percent and of a hip fracture 0.5 percent. (T score greater or equal to -1.0 to: NORMAL) (T score from -1.1 to -2.4: OSTEOPENIA) (T score less than or equal to -2.5: OSTEOPOROSIS) IMPRESSION: * Normal bone density of the lumbar spine and hips. * 3.5 percent increase in bone density at the right hip. * 4.6 percent increase in bone density at the left hip. * 1.2 percent increase in bone density at the lumbar spine. Follow-up guidelines as follows: Osteoporosis: Consider a repeat DEXA and Vertebral Fracture Assessment (VFA) exam in 2 years or sooner if medically necessary, to reassess this patient's status. Osteopenia: Consider a repeat DEXA in 2-3 years to reassess this patient's status, or if there is a new clinical indication. Normal: Consider a repeat DEXA in 5 years or sooner, or if there is a new clinical indication. All treatment decisions require clinical judgment and consideration of individual patient factors, including patient preferences, comorbidities, previous drug use, risk factors not captured in the FRAX model (e.g., frailty, falls, vitamin D deficiency, increased bone turnover, interval significant decline in bone density ) and possible under- or over-estimation of fracture risk by FRAX. In addition, the NOF Guide recommends that FDA-approved medical therapies be considered in postmenopausal women and men age >= 50 years with a: * Hip or vertebral (clinical or morphometric) fracture * T-score of <=-2.5 at the spine or hip * Ten-year fracture probability by FRAX of >= 3% for hip fracture or >=20% for major osteoporotic fracture. People with diagnosed cases of osteoporosis or at high risk for fracture should have regular bone mineral density tests. For patients eligible for Medicare, routine testing is allowed once every 2 years. The testing frequency can be increased to one year for patients who have rapidly progressing disease, those who are receiving or discontinuing medical therapy to restore bone mass, or have additional risk factors. Dictated by: Sudeep Acosta M.D. on 03/04/2024 at 10:49 Approved by: Sudeep Acosta M.D. on 03/04/2024 at 10:54
== END ==
LOC: RAD 15:03
PROVIDERS: PCP Family Medicine; Referring Provider Family Medicine; Visit Provider Family Medicine
DX: M85.89 Other specified disorders of bone density and structure, multiple sites (principal)
CPT/HCPCS: 77080

== ENCOUNTER → 2024-08-08 14:55 | Outpatient (CLI) | payer MEDICARE, OTHER, SELFPAY ==
[2018-11-18 15:54] VITALS: BMI 37.1
--- NOTE | 2024-08-08 14:56 | DI.ECHO.S_ITS ---
[facility] +---------+ [facility] : : [address] : [address] : : [id number] : : Phone: [phone] Echocardiogram Report + + :Name: ML OLIVAREZ Study Date: 08/08/2024 Height: 66 in : :[facility] ReadingLocation: Weight: 230 lb : : Gender: Female BSA: 2.1 m2 : :: 1950 Age: 73 yrs BP: 166/84 mmHg: :Reason For Study: AORTIC VALVE SCLEROSIS : :Ordering Physician: ERASTO, : :BENNIE Performed By: Mono Hess : :Referring: BENNIE MAURER : + + Interpretation Summary The left ventricle is normal in size. The left ventricle is borderline hyperdynamic. Left ventricular ejection fraction is estimated to be 70 +/- 5%. Previous LVEF 60 to 65%. The right ventricle is grossly normal size. The right ventricular systolic function is normal. The aortic valve is trileaflet. The aortic valve opens well. There is no aortic valve stenosis. Mildly increased aortic valve velocity due to borderline hyperdynamic LV. Overall no significant valvular pathology seen. Procedure: A two-dimensional transthoracic echocardiogram with color flow and Doppler was performed. The study quality was technically difficult. Comparison is made with the echocardiogram of 11/21/2021. The patient was in normal sinus rhythm during the exam. Left Ventricle: The left ventricle is normal in size. Left ventricular wall thickness is mildly increased. There is no echo evidence for significant left ventricular outflow tract obstruction. There is no thrombus. The left ventricle is borderline hyperdynamic. Left ventricular ejection fraction is estimated to be 70 +/- 5%. There are no focal wall motion abnormalities. Diastolic parameters suggest a relaxation abnormality of the left ventricle, consistent with probable normal filling pressures. Right Ventricle: The right ventricle is grossly normal size. The right ventricular systolic function is normal. Atria: The left atrial size is normal. Right atrium not well visualized. The interatrial septum is not well visualized. Mitral Valve: There is mild mitral annular calcification. The mitral valve leaflets are mildly calcified. There is trace mitral regurgitation. Aortic Valve: The aortic valve is trileaflet. The aortic valve is mildly calcified. The aortic valve opens well. There is no aortic valve stenosis. Mildly increased aortic valve velocity due to borderline hyperdynamic LV. No aortic regurgitation is present. Tricuspid Valve: The tricuspid valve is not well visualized, but is grossly normal. There is trace tricuspid regurgitation. Pulmonary artery pressures cannot be estimated because of the lack of a measurable TR jet velocity. Pulmonic Valve: The pulmonic valve is not well seen, but is grossly normal. There is no pulmonic valvular regurgitation. Great Vessels: The aortic root is normal size. The dimensions of the ascending aorta are normal. The pulmonary artery is normal size. The inferior vena cava was not visualized. Pericardium/ Pleura There is no pericardial effusion. There is an anterior echo-free space consistent with a fat pad. MMode/2D Measurements & Calculations LVIDd: 4.8 cm LVOT diam: 2.0 cm LVIDs: 3.1 cm Ao root diam: 2.8 cm FS: 36.5 % asc Aorta Diam: 3.2 cm EPSS: 0.75 cm Ao Arch Diam (Prox Trans): 2.0 cm IVSd: 1.2 cm LVPWd: 1.2 cm LV johnson. diameter/BSA (cm/m^2): 2.3 LV sys. diameter/BSA (cm/m^2): 1.4 LA A2 area: 28.0 cm2 LA A4 area: 22.4 cm2 LA length (vol): 6.3 cm LA vol: 84.5 ml LA vol index: 39.8 ml/m2 Doppler Measurements & Calculations Ao V2 max: 218.3 cm/sec LVOT Max Mansoor: 111.0 cm/sec Ao V2 mean: 161.8 cm/sec LV V1 max P.9 mmHg Ao max P.1 mmHg LV V1 VTI: 27.8 cm Ao mean P.6 mmHg TONEY(I,D): 1.9 cm2 Ao V2 VTI: 45.6 cm TONEY(V,D): 1.6 cm2 sev ratio: 0.61 TONEY indexed to BSA (cm^2/m^2): 0.88 MV E max mansoor: 104.5 cm/sec PA V2 max: 125.8 cm/sec MV A max mansoor: 127.9 cm/sec PA V2 mean: 88.7 cm/sec MV E/A: 0.82 PA mean P.6 mmHg Med Peak E' Mansoor: 9.4 cm/sec PA pr(Accel): 15.6 mmHg E/E' med: 11.1 Lat Peak E' Mansoor: 11.4 cm/sec E/E' lat: 9.2 E/e' average: 10.2 MV dec time: 0.29 sec SV(LVOT): 85.5 ml Reading Physician:05:09 PM
== END ==
PROVIDERS: PCP Family Medicine; Referring Provider Family Medicine; Visit Provider Family Medicine
DX: I34.81 Nonrheumatic mitral (valve) annulus calcification (principal); I35.8 Other nonrheumatic aortic valve disorders
CPT/HCPCS: 93306